=== PATIENT | female | born 1955 | race Caucasian/White ===

== ENCOUNTER 2016-03-17 01:47 | Observation (INO) ==
[2016-03-17] MEDS ORDERED: Nitroglycerin 0.4 MG TAB.SUBL SL ONE (01:56)
[2016-03-17] MEDS ORDERED: Aspirin 81 MG TAB.CHEW PO ONE (01:56)
--- NOTE | 2016-03-17 02:01 | Emergency Department Note ---
Disposition Clinical Impression: Chest pain Qualifiers: Chest pain type: unspecified Qualified Code(s): R07.9 - Chest pain, unspecified Disposition: Admitted As Inpatient Condition: Fair Chest Pain HPI - General Chief Complaint: ED Chest Pain Stated Complaint: chest pain Time Seen by Provider: 03/17/16 01:55 Vital Signs Reviewed: Yes Nursing Notes Reviewed: Yes - History of Present Illness HPI Narrative: Mrs. Mcclure, a 61yo female, presents from home by EMS with CC: chest pain. Onset in the 10:00 PM hour. Located substernal. Described as an initial indigestion-like burn however this progressed to a sharp stabbing with radiation to her bilateral jaw and left arm tingling/weakness. She currently has associated dyspnea, nausea.Patient was given chewable aspirin and a single sublingual nitroglycerin by squad in route; the nitroglycerin did improve her symptoms but did not eliminate them. Denies diaphoresis, palpitations, abdominal pain, back pain. Per patient's daughters at bedside: patient has not seen a physician in quite some time; her medical conditions are currently unmanaged/uncontrolled. PMH: Hypertension, insulin dependent DM. Family history: Maternal and paternal [place] at age greater than 55, brother with congenital heart defect requiring surgical correction. PSH: Total hysterectomy, appendectomy, cholecystectomy. Habits: Current everyday smoker. - Related Data Previous Rx's Medication Instructions Recorded Insulin Glargine [Lantus] 5 unit SQ HS 30 Days 09/18/15 Insulin Lispro Protamin/Lispro 100 unit SQ TID 30 Days 09/18/15 [Humalog Mix 75-25 Kwikpen] Metformin [Glucophage] 500 mg PO BIDWM 30 Days 09/18/15 Allergies Allergy/AdvReac Type Severity Reaction Status Date / Time No Known Allergies Allergy Verified 03/10/15 17:11 All systems ED: reviewed and negative except as stated. Constitutional: Denies: fever, chills, weakness Eyes: Denies: vision change Cardiovascular: Reports: chest pain, dyspnea on exertion, orthopnea. Denies: palpitations Respiratory: Reports: dyspnea. Denies: cough, wheezes Gastrointestinal: Reports: nausea. Denies: abdominal pain, vomiting, diarrhea, constipation, hematemesis, melena, hematochezia Musculoskeletal: Denies: back pain Neurological: Reports: weakness, numbness. Denies: headache Chest Pain PMH - Past Medical History Medical history: Reports: diabetes, other - Social History Smoking Status: Current every day smoker Alcohol use: Reports: none Physical Exam General: Patient is alert, oriented, and clutching her chest in pain. HEENT: No facial asymmetry. Head is normocephalic and atraumatic. Trachea midline. Cardiovascular: Heart regular rate and rhythm without clicks, rubs, gallops, or murmurs. No JVD. PMI nondisplaced. Respiratory: Symmetric chest rise with poor respiratory effort. Prolonged expiratory phase Bilateral breath sounds are clear without wheezing, crackles, or rhonchi. Abdomen: Bowel sounds present normoactive x-4 quadrants. Abdomen is soft, nondistended, and nontender. No organomegaly noted. Psych: Patient's affect is appropriate for situation. Course Course Narrative: Patient story and uncontrolled past medical problems are concerning. Repeat EKG and chest pain workup. EKG unremarkable. Will give aspirin and sublingual nitroglycerin every 5 minutes 3. Chest pain relieved after 2 nitroglycerin here in the emergency department. Chest x-ray unremarkable. Patient is hyperglycemic otherwise lab work unremarkable including negative troponin. Vital Signs Temperature 0 F L 03/17/16 01:49 Pulse Rate 76 03/17/16 01:49 Respiratory Rate 16 03/17/16 01:49 Blood Pressure 132/70 03/17/16 01:49 O2 Sat by Pulse Oximetry 97 03/17/16 01:49 Temperature 0 F L 03/17/16 01:49 Pulse Rate 69 03/17/16 03:26 Respiratory Rate 20 03/17/16 03:26 Blood Pressure 108/56 03/17/16 03:26 O2 Sat by Pulse Oximetry 96 03/17/16 03:26 Oxygen Delivery Oxygen Delivery Nasal Cannula Chest Pain - Medical Records Medical records reviewed: Yes I reviewed the patient's medical records. - Lab Data Result diagrams: 03/17/16 02:07 03/17/16 02:07 Lab Results 03/17/16 03/17/16 03/17/16 Range/Units 02:07 02:07 02:07 WBC 6.8 (4.3-11.1) K/mcL RBC 4.88 (3.82-4.97) M/mcL Hgb 14.5 (11.5-15.4) g/dL Hct 41.5 (35.3-44.9) % MCV 85.0 (83.0-100.0) fL MCH 29.7 (28.0-33.3) pg MCHC 34.9 (31.6-35.5) g/dL RDW 13.0 (11.5-14.5) % Plt Count 211 (140-400) K/mcL MPV 10.2 (9.4-12.4) fL Immature Gran % 0.1 (0-4) % Seg Neutrophils % 51.4 % Lymphocytes % 37.7 % Monocytes % 7.0 % Eosinophils % 3.1 % Basophils % 0.7 % Neutrophils # 3.5 (1.6-8.9) K/mcL Lymphocytes # 2.6 (0.6-4.6) K/mcL Monocytes # 0.5 (0.0-1.3) K/mcL Eosinophils # 0.2 (0.0-0.6) K/mcL Basophils # 0.1 (0.0-0.2) K/mcL PT 12.6 H (9.4-12.1) Seconds INR 1.2 APTT 25.4 L (26.0-36.0) Seconds Sodium 134 L (136-145) mEq/L Potassium 3.7 (3.5-4.5) mEq/L Chloride 102 (98-109) mEq/L Carbon Dioxide 21 (19-29) mEq/L BUN 12 (7-20) mg/dL Creatinine 0.75 (0.57-1.11) mg/dL Est GFR ( Amer) > 60 (> 60) Est GFR (Non-Af Amer) > 60 (> 60) BUN/Creatinine Ratio 16 (6-26) Glucose 314 H (70-99) mg/dL Calculated Osmolality 290 (280-300) Calcium 8.8 (8.6-10.8) mg/dL Troponin I (0-0.03) ng/mL 03/17/16 Range/Units 02:07 WBC (4.3-11.1) K/mcL RBC (3.82-4.97) M/mcL Hgb (11.5-15.4) g/dL Hct (35.3-44.9) % MCV (83.0-100.0) fL MCH (28.0-33.3) pg MCHC (31.6-35.5) g/dL RDW (11.5-14.5) % Plt Count (140-400) K/mcL MPV (9.4-12.4) fL Immature Gran % (0-4) % Seg Neutrophils % % Lymphocytes % % Monocytes % % Eosinophils % % Basophils % % Neutrophils # (1.6-8.9) K/mcL Lymphocytes # (0.6-4.6) K/mcL Monocytes # (0.0-1.3) K/mcL Eosinophils # (0.0-0.6) K/mcL Basophils # (0.0-0.2) K/mcL PT (9.4-12.1) Seconds INR APTT (26.0-36.0) Seconds Sodium (136-145) mEq/L Potassium (3.5-4.5) mEq/L Chloride (98-109) mEq/L Carbon Dioxide (19-29) mEq/L BUN (7-20) mg/dL Creatinine (0.57-1.11) mg/dL Est GFR ( Amer) (> 60) Est GFR (Non-Af Amer) (> 60) BUN/Creatinine Ratio (6-26) Glucose (70-99) mg/dL Calculated Osmolality (280-300) Calcium (8.6-10.8) mg/dL Troponin I 0.01 (0-0.03) ng/mL - EKG Data EKG attestation: Yes I reviewed and interpreted this EKG. EKG results narrative: EKG dated 03/17/16 at 1:55 shows sinus rhythm with a rate of 77. Normal intervals. Normal axis. Nonspecific ST-T changes. Compared to previous dated 03/30/2010 at 11:46 showing no acute ischemic changes in comparison. Heart Score - Score History: Moderately Suspicious EKG: Normal Age: 45-65 Risk Factors: Equal/Greater than 3 risk factor or history of atherosclerotic disease Troponin: Less than normal limit HEART Score Total: 4 Attestation Statement - Attestation Attestation: INigel MD, personally performed a history and physical exam of the patient and discussed their management with the resident. I reviewed the resident's note and agree with the documented findings, medical decision making , and plan of care. 61-year-old female presents to the emergency department with a complaint of substernal chest pain which started about 10 PM tonight. Some nausea and shortness of breath associated with the pain. No diaphoresis. Some radiation up into the neck and jaw and towards the left shoulder. She denies any history of heart problems. She does have a history of COPD. On examination patient is a well-developed well-nourished female in no acute distress. She is alert and oriented 3. There is no cyanosis or diaphoresis. Breath sounds are equal bilaterally with some scattered expiratory wheezes. Heart regular rate and rhythm. Abdomen soft and nontender with normal bowel sounds. No pedal edema. EKG normal. Chest x-ray negative. Labs reviewed. Pain was the first nitroglycerin. The hospitalist, Dr. Bee, was consulted and accepted admission of the patient.
[2016-03-17 02:19] LABS: Basophils # 0.1 K/mcL (0.0-0.2); Basophils % 0.7 %; Eosinophils # 0.2 K/mcL (0.0-0.6); Eosinophils % 3.1 %; Hematocrit 41.5 % (35.3-44.9); Hemoglobin 14.5 g/dL (11.5-15.4); Immature Granulocytes % 0.1 % (0-4); Lymphocytes # 2.6 K/mcL (0.6-4.6); Lymphocytes % 37.7 %; Mean Corpuscular HGB Conc 34.9 g/dL (31.6-35.5); Mean Corpuscular Hemoglobin 29.7 pg (28.0-33.3); Mean Platelet Volume 10.2 fL (9.4-12.4); Monocytes # 0.5 K/mcL (0.0-1.3); Neutrophils # 3.5 K/mcL (1.6-8.9); Platelet Count 211 K/mcL (140-400); Red Blood Count 4.88 M/mcL (3.82-4.97); Segmented Neutrophils % 51.4 %
[2016-03-17 02:20] LABS: INR 1.2; Prothrombin Time 12.6 Seconds (9.4-12.1)
[2016-03-17 02:23] LABS: Activated Partial Thrombo Time 25.4 Seconds (26.0-36.0)
[2016-03-17 02:24] LABS: BUN/Creatinine Ratio 16 (6-26); Blood Urea Nitrogen 12 mg/dL (7-20); Calcium 8.8 mg/dL (8.6-10.8); Carbon Dioxide 21 mEq/L (19-29); Chloride 102 mEq/L (98-109); Glucose 314 mg/dL (70-99); Osmolality,Calculated 290 (280-300); Potassium 3.7 mEq/L (3.5-4.5); Sodium 134 mEq/L (136-145); eGFR For African Americans > 60 (> 60); eGFR For Non-African Americans > 60 (> 60)
[2016-03-17] MEDS ORDERED: Naloxone 0.4 MG/ML INJ IVP PRN (05:02)
[2016-03-17] MEDS ORDERED: *HR* Morphine 2 MG/ML SYRINGE IVP PRN (05:02)
[2016-03-17] MEDS ORDERED: Dextrose Gel 15 GM PO PRN ×2 (05:02)
[2016-03-17] MEDS ORDERED: *HR* Dextrose 50 % in Water (Syg) 50 ML SYRINGE IVP PRN (05:02)
[2016-03-17] MEDS ORDERED: Ondansetron 4 MG/2 ML VIAL IVP PRN (05:02)
[2016-03-17] MEDS ORDERED: Albuterol 2.5 MG/3 ML NEBULIZER IH PRN (05:02)
[2016-03-17] MEDS ORDERED: Acetaminophen 325 MG TABLET PO PRN (05:02)
[2016-03-17] MEDS ORDERED: D5% in Water 1,000 ML IV PRN (05:02)
[2016-03-17] MEDS ORDERED: 0.9 % Sodium Chloride w KCl 20 MEQ/1,000 ML MLS IVC SCH (05:15)
--- NOTE | 2016-03-17 05:15 | Internal Med History&Physical ---
Date of Encounter: 03/17/16 Time of Encounter: 05:10 Assessment and Plan (1) Chest pain Current visit: Yes Status: Acute 1. Suspect this is due to AECOPD 2. Treat with low dose steroids, frequent aerosols, and IV Levaquin. 3. Cycle troponins and EKG's. 4. Obtain EHCO. Qualifiers: Chest pain type: precordial pain Qualified Code(s): R07.2 - Precordial pain (2) COPD (chronic obstructive pulmonary disease) Current visit: Yes Status: Acute 1. Steroids, antibiotics, and aerosols as above. 2. Smoking cessation well-advised. 3. Oxygen as needed. Qualifiers: COPD type: COPD with acute exacerbation Qualified Code(s): J44.1 - Chronic obstructive pulmonary disease with (acute) exacerbation (3) Diabetes mellitus, insulin dependent (IDDM), uncontrolled Current visit: Yes Status: Chronic 1. Pt stopped all meds in the last years. She has lost to follow up. 2. WIll cover with SSI. 3. Consult telehealth nurse educator. 4. Pt likely need hospice social worker consult to assist in coordinating care upon discharge Qualifiers: Diabetes mellitus complication status: without complication Qualified Code( s): E10.9 - Type 1 diabetes mellitus without complications (4) DVT prophylaxis Current visit: Yes Status: Acute 1. Heparin SQ. Internal Medicine - H&P: HPI Chief complaint: CHEST PAIN; SOB Admitted From: Emergency Dept Plans for Post Hospital Care: Home History of present illness: Ms. Mcclure is a 61 year old female who presented to the ER with a 2 day history of chest pain, pressure, shortness of breath, and diaphoresis. Because the pain persisted and worsened, she came to the ER for evaluation. She was evaluated for possible coronary ischemia and TX but results were negative. Nonetheless, she was admitted to the hospitalist service. Upon my assessment of the patient, she is pleasant and cooperative, but she is quite somnolent and wheezing and coughing. She admits to having had significant cough, wheeze, and thick mucus production. She describes chest pain that is more of a heaviness and smothering of her lungs. States she had a stress test several years ago which was negative and has never had any heart disease. She does not take any inhalers and aerosols. She also has not been to a doctor in over a year. She states she takes no medications and that she has not seen her primary care provider for quite some time. Despite her COPD, she continues to smoke. Past Med Surg Social Fam HX - Past Medical History Attestation: Yes The following information was validated with the patient. Source: patient, old records reviewed Medical history: COPD, diabetes Psychiatric history: no psych history - Past Surgical History Surgical History: appendectomy, cholecystectomy, JUAN CARLOS/BSO - Social History Smoking Status: Current every day smoker Smokeless Tobacco Status: No Alcohol use: none Drug use: none Current living situation: Home - Independent, With Family Recent Out of Country Travel Within the Last 8 Weeks: No Exposure or Possible Exposure to Illness During Travel: No - Family History Mother Living Status: Still Living Hx Family Cardiac Disorders: Yes (HYPERTENSION) Father Living Status: Hx Family Cardiac Disorders: Yes Hx Family Neurologic Disorders: Yes Internal Medicine - H&P: Meds Insulin Glargine [Lantus] 5 unit SQ HS 30 Days 09/18/15 [Rx] Insulin Lispro Protamin/Lispro [Humalog Mix 75-25 Kwikpen] 100 unit SQ TID 30 Days 09/18/15 [Rx] Metformin [Glucophage] 500 mg PO BIDWM 30 Days 09/18/15 [Rx] Allergies No Known Allergies Allergy (Verified 03/10/15 17:11) - Constitutional Constitutional: no anorexia, no chills, no fever(s) - EENT Eyes: no blurry vision, no change in vision, no other visual disturbances Ears: no ear pain, no tinnitus Nose, mouth and throat: no nasal congestion, no nasal discharge, no sinus pressure, no sore throat - Cardiovascular Cardiovascular ROS IM: chest pain, diaphoresis, dyspnea, dyspnea on exertion, no paroxysmal nocturnal dyspnea - Respiratory Respiratory: cough, dyspnea, dyspnea on exertion, wheezing, chest congestion, excessive phlegm production, change in phlegm color, no hemoptysis - Gastrointestinal Gastrointestinal: no abdominal pain, no diarrhea, no hematochezia, no loose stools, no nausea, no vomiting - Genitourinary Genitourinary: no dysuria, no hematuria - Musculoskeletal Musculoskeletal ROS IM: arthralgias, back pain, no muscle weakness - Integumentary Integumentary IM: no rash, no jaundice - Neurological Neurological ROS: no disequilibrium, no dizziness, no focal weakness, no frequent falls - Psychiatric Psychiatric: no anxiety, no depression - Endocrine Endocrine IM: no cold intolerance, no heat intolerance - Hematologic/Lymphatic Hematologic/Lymphatic: no easy bruising, no lymphadenopathy - Allergic/Immunologic Allergic/Immunologic: wheezing, no GI upset with certain foods - Constitutional Vitals: Temp Pulse Resp BP Pulse Ox 97.5 F L 63 17 107/66 96 03/17/16 04:36 03/17/16 04:36 03/17/16 04:36 03/17/16 04:36 03/17/16 04:36 General appearance: Present: cooperative, A&O X 3, no acute distress - Head Head exam: Present: atraumatic, normal inspection - Expanded Head Exam Head exam expanded: Absent: abrasion, contusion, general tenderness - Eye Eye exam: Present: EOMI, normal appearance, PERRL. Absent: scleral icterus Pupils: Present: normal accommodation - ENT ENT exam: Present: mucous membranes dry, normal exam, normal oropharynx - Neck Neck exam general surgery: Present: full ROM, supple. Absent: lymphadenopathy, nuchal rigidity, thyromegaly - Expanded Neck Exam Neck exam: Present: carotid bruit - Respiratory Respiratory exam: Present: chest wall tenderness, prolonged expiratory phase, rales, wheezes. Absent: CTAB, rhonchi - Cardiovascular Cardiovascular exam: Present: RRR, +S1, +S2. Absent: distant heart sounds, systolic murmur - GI/Abdominal GI/Abdominal exam: Present: normal bowel sounds, soft. Absent: hepatomegaly, mass, pulsatile mass, splenomegaly - Extremities Exam Extremities exam: Present: full ROM, normal capillary refill. Absent: calf tenderness, joint swelling, tenderness - Back Exam Back exam: Present: normal inspection. Absent: CVA tenderness (L), CVA tenderness (R) - Neurological Exam Neurological exam: Present: alert, CN II-XII intact, oriented X3, no focal deficits - Psychiatric Psychiatric exam: Present: normal affect, normal mood - Skin Skin exam: Present: dry, warm Internal Med - H&P Results - Labs CBC & Chem 7: 03/17/16 02:07 03/17/16 02:07 - EKG Data -: EKG Interpreted by Myself EKG shows normal: sinus rhythm - EKG Data Prior EKG available for review: no EKG comments: 03/17/16 05:23 nsr; no evidence of ischemia
[2016-03-17 05:39] LABS: Hemoglobin A1C 9.6 %
[2016-03-17] MEDS ORDERED: Levofloxacin 500 MG/100 ML 500 MG/100 ML BAG IVPB SCH (06:00)
[2016-03-17] MEDS ORDERED: *HR* Heparin 5,000 UNIT/ML VIAL SQ SCH (07:00)
[2016-03-17] MEDS: Insulin LISPRO 300 UNITS/3 ML VIAL SQ SCH ×2 (07:58→12:14)
[2016-03-17] MEDS ORDERED: predniSONE 20 MG TABLET PO SCH (09:00)
[2016-03-17] MEDS: Ipratropium/Albuterol Neb 3 ML IH SCH ×2 (10:29→15:37)
[2016-03-17 15:51] VITALS: BP 110/65
--- NOTE | 2016-03-17 16:38 | Discharge Summary ---
Date of Encounter: 03/17/16 Time of Encounter: 10:35 - Discharge Diagnosis (1) COPD with acute exacerbation Priority: Primary Status: Acute (2) Chest pain Priority: Primary Status: Acute Qualifiers: Chest pain type: precordial pain Qualified Code(s): R07.2 - Precordial pain (3) Diabetes mellitus, insulin dependent (IDDM), uncontrolled Priority: Primary Status: Chronic Qualifiers: Diabetes mellitus complication status: without complication Qualified Code( s): E10.9 - Type 1 diabetes mellitus without complications - Discharge Medications Prescriptions: GuaiFENesin/Codeine [Robitussin w/Codeine] 10 ml PO Q6HR 5 Days Budesonide/Formoterol 160/4.5 [Symbicort 160/4.5] 2 puff IH BIDR 30 Days Levofloxacin [Levaquin] 500 mg PO DAILY 7 Days PredniSONE 20 mg PO DAILY 7 Days Tiotropium [Spiriva] 18 mcg IH DAILY 30 Days Home Medications: Insulin Lispro Protamin/Lispro [Humalog Mix 75-25 Kwikpen] 100 unit SQ TID 30 Days 09/18/15 [Rx] Metformin [Glucophage] 500 mg PO BIDWM 30 Days 09/18/15 [Rx] Budesonide/Formoterol 160/4.5 [Symbicort 160/4.5] 2 puff IH BIDR 30 Days [Rx] GuaiFENesin/Codeine [Robitussin w/Codeine] 10 ml PO Q6HR 5 Days 03/17/16 [Rx] Insulin Glargine [Lantus] 15 unit SQ HS 30 Days 03/17/16 [Rx] Levofloxacin [Levaquin] 500 mg PO DAILY 7 Days 03/17/16 [Rx] PredniSONE 20 mg PO DAILY 7 Days 03/17/16 [Rx] Tiotropium [Spiriva] 18 mcg IH DAILY 30 Days 03/17/16 [Rx] Allergies/Adverse Reactions: Allergies No Known Allergies Allergy (Verified 03/10/15 17:11) Procedures/tests Complete & Pending: Procedures Performed prior 72 hours Category Date Time Status ECG 12 lead ECG [ECG] AM 0600 Y 03/17/16 06:00 Ordered Date of admission: 03/17/16 03:48 Primary care physician: PCP NO Discharging clinician: Mario Alberto P Capri Anticipated date of discharge: 03/17/16 - Patient Status Disposition: Home, Self-Care Condition: Good Overall status at discharge: patient is progressing back to baseline - Discharge Instructions Instructions: Chest Pain (DC) Follow Up With: NO,PCP [Primary Care Provider] - - Diet and Activity Activity: resume usual activities as tolerated Diet: diabetic diet Interval History: Chest pain has resolved, serial troponin remain normal. No acute telemetry events. Hospital course: Ms. Mcclure is a 61 year old female with COPD, and on-going tobacco abuse. She was admitted with a 2 day history of chest pain, pressure, shortness of breath, and diaphoresis, for rule of ACS, though impression at admission was more consistent with chest pain related to COPD exacerbation. Serial troponin remained normal. No acute events on telemetry. Chest had improved with initiation of prednisone and nebulized bronchodilators. Glyceric control was poor at admission and even worse with initiation of prednisone At discharge O/E: Not in distress HEENT: Not pale, anicteric, afebrile, acyanotic, Chest: no audible wheezing, prolonged expiratory phase, no crackles. Heart: RRR, HS1/2, no murmur Abdomen: soft, non-tender, no masses. : No flank tenderness, no CVA tenderness, no suprapubic tenderness. STATION CHIEF: AAO x 3, no gross focal neurological deficits Skin: No active skin lesion Extremities: No pedal edema, normal pedal pulses, no calf tenderness. IMP Atypical chest pain related to COPD exacerbation. myocardial infarction ruled out COPD exacerbation Poorly controlled diabetes. PLAN DC home Medication compliance Follow-up with PCP this week Smoking cessation. Increase Levemir to 15u QHS. Time spent discussing smoking cessation with patient: more than 10 minutes - Time Spent with Patient Total time spent providing and/or coordinating discharge services: Greater than 30 minutes - Constitutional Vitals: Temp Pulse Resp BP Pulse Ox 97.5 F L 97 17 110/65 91 L 03/17/16 15:49 03/17/16 15:49 03/17/16 15:49 03/17/16 15:49 03/17/16 15:49 General appearance: Present: cooperative, A&O X 3, no acute distress
--- NOTE | 2016-03-17 20:08 | Electrocardiograph Report ---
[facility] Test Date: 2016-03-17 Pat Name: Tram Mcclure Department: 103 Room: 3B47 Gender: F Button Sawyer: PELON : 1955 Requested By: Sushil Keene Order Number: [id number] Reading MD: Avery Almendarez DO Measurements Intervals [place] Rate: 77 P: 24 FL: 134 QRS: 56 QRSD: 86 T: 70 QT: 358 QTc: 390 Interpretive Statements SINUS RHYTHM Electronically Signed On 03-17-16 20:06:47 EST by Avery Almendarez DO
[2016-03-18] MEDS ORDERED: levoFLOXacin 500 MG TABLET PO SCH (09:00)
== END 2016-03-17 17:25 | disposition home or self-care (01) ==
LOC: EMEROO 01:47 → 3BNU 01:47
PROVIDERS: ADMIT Internal Medicine; ATTEND Internal Medicine Endocrinology, Diabetes & Metabolism

== ENCOUNTER 2016-07-18 18:42 | Observation (INO) ==
[2016-07-18] MEDS ORDERED: Aspirin 81 MG TAB.CHEW PO ONE (19:13)
--- NOTE | 2016-07-18 19:13 | Emergency Department Note ---
Disposition Clinical Impression: Chest pain of uncertain etiology Disposition: Admitted As Inpatient Condition: Good Time of Disposition: 22:46 Chest Pain HPI - General Chief Complaint: ED Chest Pain Stated Complaint: chest pain Time Seen by Provider: 07/18/16 18:53 Source: patient, EMS Limitations: no limitations Vital Signs Reviewed: Yes Nursing Notes Reviewed: Yes - History of Present Illness HPI Narrative: Mrs. Mcclure, a 61-year-old female, presents from home by POV with chief complaint of chest/epigastric pain. Onset 4:56 PM. Described as a dull stump located in the mid sternum/low sternum/epigastrium. Radiation bilaterally posteriorly toward the thoracolumbar junction and laterally along the inferior costal margins. Associated with nausea, right jaw pain, dyspnea, sensation of warmth. No diaphoresis, weakness. Patient does have a history of GERD however she notes that her symptoms felt different than her typical reflux. Patient has never been diagnosed with COPD however she is awaiting scheduling for her first stress test and cardiac echo on an outpatient basis. PMH: Hypertension, hyperlipidemia, diabetes on insulin and oral hyperglycemic, GERD, COPD a 61-year-old female PSH: cholecystectomy, appendectomy, hysterectomy with right oophorectomy Habits: Patient is a current every day smoker. Family history: Father had OR in his late 50s. Brother 2 days ago at the age of 57 due to suspected OR. ROS: Positive: Chest/epigastric pain, nausea, right jaw pain, dyspnea, back pain Negative: Fever, chills, vomiting, flank pain, Severity scale (1-10): 4 - Related Data Home Medications Medication Instructions Recorded Confirmed Metformin HCl [Glucophage] 1,000 mg PO BID 03/28/16 07/18/16 Aspirin 81 mg PO DAILY 05/02/16 07/18/16 Metoprolol [Lopressor] 25 mg PO BID 05/02/16 07/18/16 Rosuvastatin Calcium [Crestor] 40 mg PO DAILY 05/02/16 07/18/16 Insulin ASPART [Novolog Flexpen] 6 - 14 unit SQ TID PRN 05/27/16 07/18/16 Insulin Glargine [Lantus] 23 unit SQ HS 05/27/16 07/18/16 Isosorbide MONOnitrate (24 HR) 60 mg PO DAILY 05/27/16 07/18/16 [Imdur] Albuterol Sulfate [Ventolin Hfa] 2 puff IH Q6H PRN 07/18/16 07/18/16 Lisinopril 2.5 mg PO DAILY 07/18/16 07/18/16 Ondansetron ODT [Zofran ODT] 4 mg PO Q8H PRN 07/18/16 07/18/16 Previous Rx's Medication Instructions Recorded Tiotropium [Spiriva] 18 mcg IH DAILY 30 Days 03/17/16 Omeprazole [PriLOSEC] 40 mg PO DAILY #30 cap 05/02/16 Allergies Allergy/AdvReac Type Severity Reaction Status Date / Time No Known Allergies Allergy Verified 07/18/16 20:09 All systems ED: reviewed and negative except as stated. Chest Pain PMH - Past Medical History Medical history: Reports: COPD, diabetes, GERD, hyperlipidemia, hypertension, liver disease Surgical history: Reports: appendectomy, breast surgery, cholecystectomy, JUAN CARLOS/ BSO Psychiatric history: Reports: no psych history - Social History Smoking Status: Current every day smoker Alcohol use: Reports: none Drug use: Reports: none Physical Exam Vital Signs Reviewed General: Patient is alert, oriented, and in no acute distress. HEENT: No facial asymmetry. Head is normocephalic and atraumatic. PERRLA. Oral mucosa moist. Trachea midline. Cardiovascular: Heart regular rate and rhythm without clicks, rubs, gallops, or murmurs. No JVD. PMI nondisplaced. Bilateral radial posterior tibial pulses 2 /4. No pedal edema. Palpation: Patient's inferior and middle sternum reproduce her chest pain exactly. Respiratory: Symmetric chest rise with poor respiratory effort. Prolonged respiratory effort. Bilateral breath sounds are clear without wheezing however bibasilar coarse lung sounds are present. Abdomen: Obese. Bowel sounds present normoactive x-4 quadrants. Abdomen is soft, nondistended. Epigastric tenderness without tenderness along the inferior costal margins. Skeletal skeletal: No tenderness along thoracic or lumbar spinous processes. Psych: Patient's affect is appropriate for situation. - General Limitations: no limitations General appearance: alert, in no apparent distress Course Course Narrative: Pharmacologic stress test 04/29/16 negative for ischemia. Ejection fraction greater than 70%. Normal wall motion. Chest x-ray unremarkable per radiology read. EKG unremarkable. Troponin negative. Spoke with the patient regarding her risk factors and current findings. She agrees to come in for rule out of ACS. Spoke with the hospitalist, Dr. Pollock, who agrees to accept the patient. Vital Signs Temperature 98.1 F 07/18/16 18:48 Pulse Rate 80 07/18/16 18:48 Respiratory Rate 16 07/18/16 18:48 Blood Pressure 107/61 07/18/16 18:48 O2 Sat by Pulse Oximetry 93 07/18/16 18:48 Temperature 98.1 F 07/18/16 18:48 Pulse Rate 79 07/18/16 20:30 Respiratory Rate 20 07/18/16 21:11 Blood Pressure 116/66 07/18/16 21:11 O2 Sat by Pulse Oximetry 94 07/18/16 20:30 Oxygen Delivery Oxygen Delivery Room Air Chest Pain - Medical Records Medical records reviewed: Yes I reviewed the patient's medical records. - Lab Data Result diagrams: 07/18/16 19:30 07/18/16 19:30 Lab Results 07/18/16 07/18/16 07/18/16 Range/Units 19:30 19:30 19:30 WBC 11.0 (4.3-11.1) K/mcL RBC 4.84 (3.82-4.97) M/mcL Hgb 13.9 (11.5-15.4) g/dL Hct 40.8 (35.3-44.9) % MCV 84.3 (83.0-100.0) fL MCH 28.7 (28.0-33.3) pg MCHC 34.1 (31.6-35.5) g/dL RDW 13.8 (11.5-14.5) % Plt Count 228 (140-400) K/mcL MPV 9.8 (9.4-12.4) fL Immature Gran % 0.4 (0-4) % Seg Neutrophils % 59.5 % Lymphocytes % 29.8 % Monocytes % 7.0 % Eosinophils % 2.6 % Basophils % 0.7 % Neutrophils # 6.5 (1.6-8.9) K/mcL Lymphocytes # 3.3 (0.6-4.6) K/mcL Monocytes # 0.8 (0.0-1.3) K/mcL Eosinophils # 0.3 (0.0-0.6) K/mcL Basophils # 0.1 (0.0-0.2) K/mcL Sodium 139 (136-145) mEq/L Potassium 3.9 (3.5-4.5) mEq/L Chloride 104 (98-109) mEq/L Carbon Dioxide 24 (19-29) mEq/L BUN 12 (7-20) mg/dL Creatinine 0.69 (0.57-1.11) mg/dL Est GFR ( Amer) > 60 (> 60) Est GFR (Non-Af Amer) > 60 (> 60) BUN/Creatinine Ratio 17 (6-26) Glucose 100 H (70-99) mg/dL Calculated Osmolality 288 (280-300) Calcium 9.2 (8.6-10.8) mg/dL Troponin I (0-0.03) ng/mL Lipase 20 (8-78) Units/L 05//17 Range/Units 19:30 WBC (4.3-11.1) K/mcL RBC (3.82-4.97) M/mcL Hgb (11.5-15.4) g/dL Hct (35.3-44.9) % MCV (83.0-100.0) fL MCH (28.0-33.3) pg MCHC (31.6-35.5) g/dL RDW (11.5-14.5) % Plt Count (140-400) K/mcL MPV (9.4-12.4) fL Immature Gran % (0-4) % Seg Neutrophils % % Lymphocytes % % Monocytes % % Eosinophils % % Basophils % % Neutrophils # (1.6-8.9) K/mcL Lymphocytes # (0.6-4.6) K/mcL Monocytes # (0.0-1.3) K/mcL Eosinophils # (0.0-0.6) K/mcL Basophils # (0.0-0.2) K/mcL Sodium (136-145) mEq/L Potassium (3.5-4.5) mEq/L Chloride (98-109) mEq/L Carbon Dioxide (19-29) mEq/L BUN (7-20) mg/dL Creatinine (0.57-1.11) mg/dL Est GFR ( Amer) (> 60) Est GFR (Non-Af Amer) (> 60) BUN/Creatinine Ratio (6-26) Glucose (70-99) mg/dL Calculated Osmolality (280-300) Calcium (8.6-10.8) mg/dL Troponin I 0.00 (0-0.03) ng/mL Lipase (8-78) Units/L - EKG Data EKG attestation: Yes I reviewed and interpreted this EKG. EKG results narrative: EKG dated 07/18/16 at 18:44 and troponin I as sinus rhythm with rate of 83. Normal intervals; GA 145, QRS 89, QT/QTC 365/05. Normal axis. T-wave inversions in aVL present on comparative EKG. Otherwise nonspecific ST-T changes. Compared to previous dated 03/17/2016 showing no acute ischemic changes in comparison. Heart Score - Score History: Slightly Suspicious EKG: Non Specific repolarisation Disturbance Age: 45-65 Risk Factors: Equal/Greater than 3 risk factor or history of atherosclerotic disease Troponin: Less than normal limit HEART Score Total: 4 Attestation Statement - Attestation Attestation: I, Nigel Bellamy MD, personally evaluated this patient and discussed their management with the resident physician. I reviewed the resident's note and agree with the documented findings, medical decision making, and plan of care. 61-year-old female presented to the emergency department with a complaint of some lower substernal chest pain which started about 2 hours prior to arrival while at rest. She states that the pain felt like heartburn and she took some Pepto-Bismol with no relief. She then took 3 baby aspirin. The pain radiated to the lower chest bilaterally and also straight through to the back. Nausea but no vomiting with the pain. Some increased shortness of breath. No diaphoresis. No palpitations. Patient denies any known prior history of heart disease however she does have a history of hypertension and diabetes. She is a smoker. She rated the pain a 10 out of 10 at worst. At present she rates the pain a 1-2. On examination patient is a well-developed well-nourished female in no acute distress. She is alert and oriented 3. There is no cyanosis or diaphoresis. Breath sounds are equal bilaterally with some coarse wheezes, worse on the left. Heart regular rate and rhythm. Abdomen is soft and nontender with normal bowel sounds. No pedal edema. No acute changes on EKG. Labs reviewed. Troponin 0.00. Chest x-ray negative. Due to patient's age and risk factors we will consult the hospitalist for admission. Dr. Pollock was consulted and accepted admission of the patient.
[2016-07-18 19:45] LABS: Basophils # 0.1 K/mcL (0.0-0.2); Basophils % 0.7 %; Eosinophils # 0.3 K/mcL (0.0-0.6); Eosinophils % 2.6 %; Hematocrit 40.8 % (35.3-44.9); Hemoglobin 13.9 g/dL (11.5-15.4); Immature Granulocytes % 0.4 % (0-4); Lymphocytes # 3.3 K/mcL (0.6-4.6); Lymphocytes % 29.8 %; Mean Corpuscular HGB Conc 34.1 g/dL (31.6-35.5); Mean Corpuscular Hemoglobin 28.7 pg (28.0-33.3); Mean Corpuscular Volume 84.3 fL (83.0-100.0); Mean Platelet Volume 9.8 fL (9.4-12.4); Monocytes # 0.8 K/mcL (0.0-1.3); Neutrophils # 6.5 K/mcL (1.6-8.9); Platelet Count 228 K/mcL (140-400); Red Blood Count 4.84 M/mcL (3.82-4.97); Red Cell Distribution Width 13.8 % (11.5-14.5); Segmented Neutrophils % 59.5 %
[2016-07-18 20:02] LABS: BUN/Creatinine Ratio 17 (6-26); Blood Urea Nitrogen 12 mg/dL (7-20); Calcium 9.2 mg/dL (8.6-10.8); Carbon Dioxide 24 mEq/L (19-29); Chloride 104 mEq/L (98-109); Glucose 100 mg/dL (70-99); Osmolality,Calculated 288 (280-300); Potassium 3.9 mEq/L (3.5-4.5); Sodium 139 mEq/L (136-145); eGFR For African Americans > 60 (> 60); eGFR For Non-African Americans > 60 (> 60)
[2016-07-18] MEDS ORDERED: Ondansetron 4 MG/2 ML VIAL IVP PRN (22:22)
[2016-07-18] MEDS ORDERED: Naloxone 0.4 MG/ML INJ IVP PRN (22:22)
[2016-07-18] MEDS ORDERED: Acetaminophen 325 MG TABLET PO PRN (22:22)
[2016-07-18] MEDS ORDERED: D5% in Water 1,000 ML IVC PRN (22:36)
[2016-07-18] MEDS ORDERED: Dextrose Gel 15 GM PO PRN ×2 (22:36)
[2016-07-18] MEDS ORDERED: *HR* Dextrose 50 % in Water (Syg) 50 ML SYRINGE IVP PRN (22:36)
--- NOTE | 2016-07-18 22:45 | Internal Med History&Physical ---
Date of Encounter: 07/18/16 Time of Encounter: 22:00 Assessment and Plan (1) Chest pain Current visit: No Status: Acute Assess: Ms. Mcclure presents from the ED with chief complaint of chest and epigastric pain. Patient reports her pain began around 5 PM today (07/18/16). Patient describes her pain as beginning midsternum/epigastric area radiating to her right jaw and back of neck. Patient qualifies pain as burning sensation and constant and became nauseated and SOB. Patient states she has had this pain before but never to this degree of discomfort. Plan: Trend troponins x2 Continuous cardiac telemetry Continue aspirin therapy Continue lisinopril Continue isosorbide Continue Lopressor Supplemental O2 ordered Follow-up labs ordered, including INR and APTT Monitor the patient's vital signs Qualifiers: Chest pain type: precordial pain Qualified Code(s): R07.2 - Precordial pain (2) Diabetes mellitus, insulin dependent (IDDM), uncontrolled Current visit: Yes Status: Chronic Assess: Patient presents with history of chronic diabetes mellitus, insulin-dependent uncontrolled. Plan: Blood glucose monitoring ordered Continue patient's insulin Low-dose correction insulin protocol ordered Hypoglycemia protocol ordered Qualifiers: Diabetes mellitus complication status: without complication Qualified Code( s): E10.9 - Type 1 diabetes mellitus without complications (3) COPD (chronic obstructive pulmonary disease) Current visit: Yes Status: Chronic Assess: Patient presents with history of chronic obstructive pulmonary disease. Plan: Supplemental O2 ordered with titration if SPO2 less than 92% Monitor SpO2 Continue albuterol sulfate Continue Spiriva Monitor patient's vital signs Qualifiers: COPD type: COPD with acute exacerbation Qualified Code(s): J44.1 - Chronic obstructive pulmonary disease with (acute) exacerbation (4) Hypertension Current visit: Yes Status: Chronic Assess: Patient presents with history of chronic hypertension. Plan: Continue lisinopril Continue Lopressor Monitor patient's vital signs Qualifiers: Hypertension type: essential hypertension Qualified Code(s): I10 - Essential (primary) hypertension (5) DVT prophylaxis Current visit: Yes Status: Acute Assess: Patient to be placed on DVT prophylaxis due to current chest pain, cardiac risk factors, and inpatient status. Plan: Heparin 5,000 units SQ Q8 Internal Medicine - H&P: HPI Chief complaint: Chest pain Admitted From: Emergency Dept Plans for Post Hospital Care: Home History of present illness: Ms. Mcclure is a 61 year old female presents from the ED with chief complaint of chest and epigastric pain. Patient reports her pain began around 5 PM today (). Patient describes her pain as beginning midsternum/epigastric area radiating to her right jaw and back of neck. Patient qualifies pain as burning sensation and constant and became nauseated and SOB. Patient states she has had this pain before but never to this degree of discomfort. Patient denies dizziness, weakness, diaphoresis, syncope, fever, chills, vomiting, flank pain, or lightheadedness patient's cardiac risk factors include diabetes, hyperlipidemia, and hypertension. Patient also reports medical history of COPD , GERD, and liver disease. Mrs. Nick reports she is a current smoker, smoking 1/2-1 pack per day. Patient denies use of EtOH or drugs. Most recently , patient had pharmacologic stress test performed on 04/29/16 which was negative for ischemia. Stress test showed EF greater than 70% and normal wall motion. Patient's EKG dated 03/17/16 shows sinus rhythm. EKG dated 07/18/16 shows sinus rhythm as well. Both EKGs are unremarkable. Patient to be placed in observation status with continuous cardiac telemetry, continuous pulse oximetry, troponins trended 2, follow-up labs ordered including INR and APTT as well as lipid panel. Patient to be monitored closely. Past Med Surg Social Fam HX - Past Medical History Source: patient Medical history: COPD, diabetes, GERD, hyperlipidemia, hypertension, liver disease Psychiatric history: no psych history - Past Surgical History Surgical History: appendectomy, breast surgery, cholecystectomy, hysterectomy, JUAN CARLOS/BSO - Social History Smoking Status: Current every day smoker Packs per day: 1/2 to 1 PPD Smokeless Tobacco Status: No Alcohol use: none Drug use: none Occupational status: retired Current living situation: Home - Independent Activity Level: Independent ambulation Recent Out of Country Travel Within the Last 8 Weeks: No Exposure or Possible Exposure to Illness During Travel: No - Family History Mother Race: Family Member Ethnicity: Non- Living Status: Still Living Hx Family Cardiac Disorders: Yes (HTN, Strokes x2) Father Race: Family Member Ethnicity: Non- Living Status: Age at : 58 Cause of : Complications of DM Hx Family Cardiac Disorders: Yes (CO) Hx Family Endocrine Disorder: Yes (DM) Hx Family Neurologic Disorders: Yes Brother Race: Family Member Ethnicity: Non- Living Status: Age at : 58 Cause of : CO Hx Family Cardiac Disorders: Yes (CO) Sister Race: Family Member Ethnicity: Non- Living Status: Age at : 60 Cause of : Complications from DM Hx Family Endocrine Disorder: Yes (DM) Internal Medicine - H&P: Meds Tiotropium [Spiriva] 18 mcg IH DAILY 30 Days 03/17/16 [Rx] Metformin HCl [Glucophage] 1,000 mg PO BID 03/28/16 [History] Aspirin 81 mg PO DAILY 05/02/16 [History] Metoprolol [Lopressor] 25 mg PO BID 05/02/16 [History] Omeprazole [PriLOSEC] 40 mg PO DAILY #30 cap 05/02/16 [Rx] Rosuvastatin Calcium [Crestor] 40 mg PO DAILY 05/02/16 [History] Insulin ASPART [Novolog Flexpen] 6 - 14 unit SQ TID PRN 05/27/16 [History] Insulin Glargine [Lantus] 23 unit SQ HS 05/27/16 [History] Isosorbide MONOnitrate (24 HR) [Imdur] 60 mg PO DAILY 05/27/16 [History] Albuterol Sulfate [Ventolin Hfa] 2 puff IH Q6H PRN 07/18/16 [History] Lisinopril 2.5 mg PO DAILY 07/18/16 [History] Ondansetron ODT [Zofran ODT] 4 mg PO Q8H PRN 07/18/16 [History] Allergies No Known Allergies Allergy (Verified 07/18/16 20:09) All Systems PM: A 10-system review of systems was performed and is negative for pertinent findings except as documented above in the HPI. - Constitutional Constitutional: no chills, no fever(s), no night sweats - EENT Eyes: no change in vision, no discharge, no pain, no photophobia Ears: no ear discharge, no ear pain, no tinnitus Nose, mouth and throat: no dysphagia, no nasal discharge, no neck pain, no sore throat - Breasts Breasts: as per HPI - Cardiovascular Cardiovascular ROS IM: as per HPI, chest pain, dyspnea - Respiratory Respiratory: as per HPI, dyspnea - Gastrointestinal Gastrointestinal: no abdominal pain, no diarrhea, no hematemesis, no hematochezia, no melena, no nausea, no vomiting - Genitourinary Genitourinary: no change in urinary stream, no dysuria, no flank pain, no hematuria Menstruation: as per HPI - Musculoskeletal Musculoskeletal ROS IM: as per HPI, neck pain, no numbness, no tingling - Integumentary Integumentary IM: no rash, no unusual bruising - Neurological Neurological ROS: no confusion, no convulsions, no focal weakness, no numbness, no tingling, no tremor(s) - Psychiatric Psychiatric: as per HPI - Endocrine Endocrine IM: as per HPI - Hematologic/Lymphatic Hematologic/Lymphatic: no easy bruising - Allergic/Immunologic Allergic/Immunologic: as per HPI - Constitutional Vitals: Temp Pulse Resp BP Pulse Ox 98.1 F 79 20 116/66 94 07/18/16 18:48 07/18/16 20:30 07/18/16 21:11 07/18/16 21:11 07/18/16 20:30 General appearance: Present: cooperative, mild distress, A&O X 3, pleasant, answers questions appropriately - Head Head exam: Present: atraumatic, normocephalic - Eye Eye exam: Present: PERRL, conjuntiva pink, sclera anicteric Pupils: Present: PERRL - ENT ENT exam: Present: normal exam, normal external ear exam - Neck Neck exam general surgery: Present: supple, trachea midline. Absent: lymphadenopathy - Respiratory Respiratory exam: Present: CTAB. Absent: accessory muscle use, rales, rhonchi, wheezes - Cardiovascular Cardiovascular exam: Present: RRR, +S1, +S2. Absent: diastolic murmur, gallop, rubs, systolic murmur - GI/Abdominal GI/Abdominal exam: Present: normal bowel sounds, soft, no peritoneal signs. Absent: distended, tenderness - Rectal Rectal exam: Present: deferred - Additional comments: exam deferred. - Extremities Exam Extremities exam: Present: warm, radial pulses palpable and symetrical. Absent : calf tenderness, cyanotic, pedal edema - Back Exam Back exam: Present: normal inspection - Neurological Exam Neurological exam: Present: CN II-XII intact, oriented X3, no focal deficits. Absent: pronater drift, facial droop, speech deficit - Psychiatric Psychiatric exam: Present: normal affect, normal mood - Skin Skin exam: Present: dry, intact Internal Med - H&P Results - Labs CBC & Chem 7: 07/18/16 19:30 07/18/16 19:30 - EKG Data EKG shows normal: sinus rhythm Rate: normal - EKG Data Prior EKG available for review: yes When compared to previous EKG: there is no significant change Interpretation IM: normal EKG EKG comments: 07/18/16 23:05 EKG dated 03/17/16 shows sinus rhythm. EKG dated 07/18/16 shows sinus rhythm. - Diagnostic Studies Chest x-ray Additional comments: 1-View CXR of chest dated 07/18/16 shows: Cardiac leads project over the chest. Dense punctate left pulmonary nodules are similar to prior. No confluent focal pulmonary opacities to suggest acute airspace disease. No evidence of pleural effusion or pneumothorax. Cardiac and mediastinal silhouettes are within normal limits. Calcified lymph nodes at the left hilum, likely reflecting granulomatosis disease. Overall impression: No evidence of acute cardiopulmonary disease.
--- NOTE | 2016-07-19 | Event Note ---
Date of Encounter: 07/18/16 Time of Encounter: 23:59 Patient seen and examined with nurse practitioner. Agree with assessment and plan. 61-year-old female with multiple risk factors for coronary artery disease including age, smoking, diabetes, hypertension, dyslipidemia, positive family history presents with chest pain. EKG shows no ST segment shifts initial troponin normal. Serial troponin. She had a recent stress test in April 2016 showing no reversible ischemia. Cardiology consultation
[2016-07-19 04:45] LABS: Basophils # 0.1 K/mcL (0.0-0.2); Basophils % 0.6 %; Eosinophils # 0.4 K/mcL (0.0-0.6); Eosinophils % 3.4 %; Hematocrit 39.5 % (35.3-44.9); Hemoglobin 13.6 g/dL (11.5-15.4); Immature Granulocytes % 0.3 % (0-4); Lymphocytes # 3.6 K/mcL (0.6-4.6); Lymphocytes % 34.6 %; Mean Corpuscular HGB Conc 34.4 g/dL (31.6-35.5); Mean Corpuscular Hemoglobin 29.5 pg (28.0-33.3); Mean Corpuscular Volume 85.7 fL (83.0-100.0); Mean Platelet Volume 10.4 fL (9.4-12.4); Monocytes # 0.7 K/mcL (0.0-1.3); Monocytes % 6.4 %; Neutrophils # 5.7 K/mcL (1.6-8.9); Platelet Count 201 K/mcL (140-400); Red Blood Count 4.61 M/mcL (3.82-4.97); Red Cell Distribution Width 14.1 % (11.5-14.5); Segmented Neutrophils % 54.7 %
[2016-07-19] MEDS ORDERED: Nitroglycerin 0.4 MG TAB.SUBL SL ONE (04:52)
[2016-07-19] MEDS: Nitroglycerin 0.4 MG TAB.SUBL SL PRN ×2 (04:55→05:02)
[2016-07-19 05:05] LABS: Alanine Aminotransferase 19 Units/L (0-55); Albumin 3.2 g/dL (3.5-5.0); Albumin/Globulin Ratio 0.9 (1.1-2.2); Alkaline Phosphatase 125 Units/L (38-126); Aspartate Amino Transferase 25 Units/L (5-34); BUN/Creatinine Ratio 16 (6-26); Bilirubin,Total 0.7 mg/dL (0.2-1.2); Blood Urea Nitrogen 11 mg/dL (7-20); Calcium 8.8 mg/dL (8.6-10.8); Carbon Dioxide 25 mEq/L (19-29); Chloride 105 mEq/L (98-109); Chol/HDL Ratio 4.2 (0-4.9); Cholesterol 133 mg/dL (< 200); Globulin 3.7 g/dL (2.4-3.5); Glucose 84 mg/dL (70-99); HDL Cholesterol 32 mg/dL (40-59); LDL Cholesterol,Calculated 77 mg/dL (0-99); Osmolality,Calculated 285 (280-300); Sodium 138 mEq/L (136-145); Total Protein 6.9 g/dL (6.0-8.3); Triglycerides 119 mg/dL (< 150); eGFR For African Americans > 60 (> 60); eGFR For Non-African Americans > 60 (> 60)
[2016-07-19 05:18] LABS: INR 1.2; Prothrombin Time 12.9 Seconds (9.4-12.1)
[2016-07-19] MEDS: Pantoprazole 40 MG VIAL IVP SCH ×2 (05:19→05:55)
[2016-07-19 05:21] LABS: Activated Partial Thrombo Time 29.5 Seconds (26.0-36.0)
[2016-07-19] MEDS ORDERED: *HR* Heparin 5,000 UNIT/ML VIAL SQ SCH (06:00)
--- NOTE | 2016-07-19 08:00 | Cardiology Consult Note ---
Date of Encounter: 07/19/16 Time of Encounter: 08:00 Assessment and Plan (1) Chest pain Current Visit: No Status: Acute Per Cardiology: Atypical chest pain symptoms that are mainly occurring at rest. Reporting increased dyspnea on exertion and fatigue. Trops 0.00 x 2. Had negative ST 2009 , 2012, and 04/2016. Risk factors for CAD: HTN, HLD, DM2, Nicotine abuse, +FH. Patient has never undergone left heart catheterization. I reviewed discussed with patient potential for further ischemic evaluation and patient is agreeable to proceed. Discussed and reviewed with Dr. Elin Modi and Dr. Hermosillo, recommend patient for left heart catheterization. Will check echocardiogram. Further conditions after echo and catheterization. Currently on aspirin, statin , beta vick, TONNY inhibitor, and long-acting nitrate. Qualifiers: Chest pain type: unspecified Qualified Code(s): R07.9 - Chest pain, unspecified (2) Nicotine abuse Current Visit: Yes Status: Chronic Per Cardiology: Currently smoking half to one pack per day and his average one pack per day for 44 years. Smoking cessation counseling provided. Discussion w patient/family: The assessment and plan as outlined above was discussed with the patient who expressed understanding and agreement. All questions were answered. Thank you for involving us in the care of your patient. Please call with any questions. History of Present Illness Consult date: 07/19/16 Requesting physician: Cody Valerio Consult reason: CP Chief complaint: CP History of present illness: Ms. Mcclure is a 61 year old female with relevant past medical history of diabetes mellitus type 2, hyperlipidemia, hypertension, COPD-- not on home O2, GERD, nicotine abuse currently smoking half to one pack per day-- has averaged one pack per day for 44 years. +FH of CAD with reported father with AR at age 57 and concern for brother possibly dying from heart attack at age 58 this past week. Records reviewed: "She presented with complaint of chest and epigastric pain. Patient reports her pain began around 5 PM today (07/18/16). Patient describes her pain as beginning midsternum/epigastric area radiating to her right jaw and back of neck. Patient qualifies pain as burning sensation and constant and became nauseated and SOB". Cardiology consult for further evaluation of chest pain symptoms. Records reviewed and noted to have negative stress test in 2009, 2012, and April 2016. Patient confirms above data. She reports intermittent left-sided chest pressure/ burning sensation over the past few weeks that occurs about once per week at rest and with walking. She reports symptoms last for a few minutes and then gradually subside. She denies any palpitations, dizziness, radiation to her left arm. Does report yesterday had some radiation to her right jaw area in the back of her neck. She does report increased overall shortness of breath and dyspnea on exertion from her baseline over the past few weeks. Reports also increasing fatigue. She denies any active bleeding or blood loss. Denies ever having left heart catheterization. She denies any recent fever, chills, nausea, vomiting, diarrhea, or cold-like symptoms. Past Med Surg Social Fam HX - Past Medical History Attestation: Yes The following information was validated with the patient. Source: patient, old records reviewed Medical history: COPD, diabetes, GERD, hyperlipidemia, hypertension, liver disease Psychiatric history: no psych history - Past Surgical History Surgical History: appendectomy, breast surgery, cholecystectomy, hysterectomy, JUAN CARLOS/BSO - Social History Smoking Status: Current every day smoker Packs per day: 1/2 to 1 PPD Smokeless Tobacco Status: No Alcohol use: none Drug use: none - Family History Mother Race: Family Member Ethnicity: Non- Living Status: Still Living Hx Family Cardiac Disorders: Yes (HTN, Strokes x2) Father Race: Family Member Ethnicity: Non- Living Status: Age at : 58 Cause of : Complications of DM Hx Family Cardiac Disorders: Yes (AR) Hx Family Endocrine Disorder: Yes (DM) Hx Family Neurologic Disorders: Yes Brother Race: Family Member Ethnicity: Non- Living Status: Age at : 58 Cause of : AR Hx Family Cardiac Disorders: Yes (AR) Sister Race: Family Member Ethnicity: Non- Living Status: Age at : 60 Cause of : Complications from DM Hx Family Endocrine Disorder: Yes (DM) Medications and Allergies Tiotropium [Spiriva] 18 mcg IH DAILY 30 Days 03/17/16 [Rx] Metformin HCl [Glucophage] 1,000 mg PO BID 03/28/16 [History] Aspirin 81 mg PO DAILY 05/02/16 [History] Metoprolol [Lopressor] 25 mg PO BID 05/02/16 [History] Omeprazole [PriLOSEC] 40 mg PO DAILY #30 cap 05/02/16 [Rx] Rosuvastatin Calcium [Crestor] 40 mg PO DAILY 05/02/16 [History] Insulin ASPART [Novolog Flexpen] 6 - 14 unit SQ TID PRN 05/27/16 [History] Insulin Glargine [Lantus] 23 unit SQ HS 05/27/16 [History] Isosorbide MONOnitrate (24 HR) [Imdur] 60 mg PO DAILY 05/27/16 [History] Albuterol Sulfate [Ventolin Hfa] 2 puff IH Q6H PRN 07/18/16 [History] Lisinopril 2.5 mg PO DAILY 07/18/16 [History] Ondansetron ODT [Zofran ODT] 4 mg PO Q8H PRN 07/18/16 [History] Allergies No Known Allergies Allergy (Verified 07/18/16 20:09) All Systems Review: A 10-system review of systems was performed and is negative for pertinent findings except as documented above in the HPI. - Constitutional Constitutional: fatigue - Cardiovascular Cardiovascular: as per HPI, chest pain at rest, chest pain with exertion, dyspnea at rest, dyspnea on exertion Physical Examination Vital Signs, Last 4 Hours Temp Pulse Resp BP Pulse Ox 07/19/16 07:21 98.1 F 86 16 133/76 93 07/19/16 05:00 103/62 General: Conversant, No Apparent Distress HEENT: Atraumatic, Normocephaly, Mucus Membranes Moist Neck: No JVD, Normal carotid pulses Cardiac: Reg Rate and Rhythm, Normal S1 and S2, No Murmur Lungs: Normal Breath Sounds, No Wheeze, Rales, Rhonchi, Other (Positive dry, nonproductive cough noted-- reports chronic) Neuro: Alert and responsive, No focal deficits noted Abdomen: Soft, Non-Tender Skin: No rashes noted on visualized skin Musculoskeletal: No Chest Wall Tenderness Extremities: No Edema, Normal Pulses Results 07/19/16 04:08 07/19/16 04:08 Lab Results Laboratory Tests 07/18/16 07/19/16 07/19/16 19:30 04:08 04:08 INR 1.2 Magnesium 2.0 Troponin I 0.00 LDL Cholesterol, Calc 77 07/19/16 04:08 INR Magnesium Troponin I 0.00 LDL Cholesterol, Calc ITS Impressions Chest X-Ray 07/18/16 19:14 IMPRESSION: No evidence of acute cardiopulmonary disease. D/ / Kevin Quintana MD / Kevin Quinatna MD Interpreting Provider: Kevni Quintana MD Active Medications Acetaminophen (Tylenol) 650 mg PO Q6HR PRN PRN Reason: Mild Pain (1-3) Stop: 01/17/17 22:23 Albuterol Sulfate (Albuterol Inhaler) 2 puff IH Q6H PRN PRN Reason: Shortness Of Breath Stop: 01/17/17 22:30 Aspirin (Aspirin) 81 mg PO DAILY [facility] Stop: 01/18/17 09:01 Dextrose/Water (Dextrose 50% (Syg)) 25 ml IVP AD PRN PRN Reason: Hypoglycemia Stop: 01/17/17 22:37 Glucagon (Glucagen) 1 mg IM ONCE PRN PRN Reason: Hypoglycemia Stop: 01/17/17 22:37 Glucose (Gluctose) 15 gm PO ONCE PRN PRN Reason: Hypoglycemia Stop: 01/17/17 22:37 Glucose (Gluctose) 30 gm PO ONCE PRN PRN Reason: Hypoglycemia Stop: 01/17/17 22:37 Heparin Sodium (Porcine) (Heparin) 5,000 unit SQ Q8HCO RUBEN Stop: 01/18/17 06:01 Last Admin: 07/19/16 04:55 Dose: 5,000 unit Dextrose (Dextrose 5%) 1,000 mls @ 100 mls/hr IVC .Q10H PRN PRN Reason: HYPOGLYCEMIA Stop: 01/17/17 22:37 Insulin Detemir (Levemir) 23 unit SQ HS [facility] Stop: 01/18/17 21:01 Insulin Human Lispro (Humalog) 0 units SQ TIDAC RUBEN PRN Reason: Protocol Stop: 01/18/17 07:31 Insulin Human Lispro (Humalog) 0 units SQ HS RUBEN PRN Reason: Protocol Stop: 01/18/17 21:01 Isosorbide Mononitrate (Imdur) 60 mg PO DAILY [facility] Stop: 01/18/17 09:01 Lisinopril (Zestril) 2.5 mg PO DAILY [facility] Stop: 01/18/17 09:01 Metoprolol Tartrate (Lopressor) 25 mg PO BID [facility] Stop: 01/18/17 09:01 Naloxone HCl (Narcan) 0.4 mg IVP Q2MIN PRN PRN Reason: Opioid Reversal Stop: 01/17/17 22:23 Nitroglycerin (Nitroglycerin) 0.4 mg SL Q5MIN PRN PRN Reason: Chest Pain Stop: 01/18/17 04:50 Last Admin: 07/19/16 05:02 Dose: 0.4 mg Ondansetron HCl (Zofran) 4 mg IVP Q8HR PRN PRN Reason: Nausea And Vomiting Stop: 01/17/17 22:23 Pantoprazole Sodium (Protonix) 40 mg IVP DAILY@0630 [facility] Stop: 01/18/17 06:01 Last Admin: 07/19/16 05:55 Dose: Not Given Rosuvastatin Calcium (Crestor) 40 mg PO DAILY [facility] Stop: 01/18/17 09:01 Tiotropium [place] (Spiriva) 18 mcg IH DAILY [facility] PRN Reason: Protocol Stop: 01/18/17 09:01 - Imaging and Cardiology Chest Xray: report reviewed Stress Test: report reviewed - EKG Interpretation EKG results cardiology: personally reviewed, normal ECG, sinus rhythm, no diagnostic ischemia, other (Telemetry reviewed with average heart rate past 24 hrs 77, sinus rhythm, no events noted) Consult Discharge Plan - Plan Referrals: Polo Martinez MD [Primary Care Provider] -
[2016-07-19] MEDS: Aspirin 81 MG TAB.CHEW PO SCH (08:24)
[2016-07-19] MEDS: Isosorbide MONOnitrate (24 HR) 60 MG TAB.ER.24H PO SCH (08:24)
[2016-07-19] MEDS: Insulin LISPRO 300 UNITS/3 ML VIAL SQ SCH ×3 (08:24→15:33)
[2016-07-19] MEDS ORDERED: *HR* Metformin 500 MG TABLET PO SCH (09:00)
[2016-07-19] MEDS ORDERED: Heparin 1,000 UNITS/500 mL NS 500 ML ONE (10:12)
[2016-07-19] MEDS ORDERED: *HR* Heparin 10,000 UNIT/10 ML VIAL ONE (10:12)
[2016-07-19] MEDS ORDERED: Nitroglycerin 1,000 MCG/10 ML VIAL IV ONE (10:12)
[2016-07-19] MEDS ORDERED: 0.9 % Sodium Chloride 1,000 ML ONE ×2 (10:12→10:25)
--- NOTE | 2016-07-19 10:18 | Pre-Sedation Evaluation ---
Pre-sedation evaluation - Pre-sedation checklist Date of procedure: 07/19/16 Procedure: heart cath Recent Vitals: Last Vital Signs Temp 98.1 F 07/19/16 07:21 Pulse 86 07/19/16 07:21 Resp 16 07/19/16 07:21 BP 133/76 07/19/16 07:21 Pulse Ox 93 07/19/16 07:21 H&P (including ROS) documented in medical record: Yes Previous reaction to sedatives/anesthetics: No Dietary Status: NPO after Midnight Airway Assessment: Patient can open mouth completely, TMJ function normal, Micrognathia (under-bite, receding chin) absent, Neck with adequate range of motion Dentition: dentures removed Possible difficult airway: No ASA Classification *see protocol: CLASS II-Mild systemic disease Plan of Care: Pt appropriate candidate for procedure/moderate/conscious sedation , Risks/benefits of procedure/sedation discussed w/ patient/family
[2016-07-19] MEDS ORDERED: *HR* Midazolam HCl 2 MG/2 ML VIAL ONE (10:24)
[2016-07-19] MEDS ORDERED: *HR* FentaNYL (PF) 100 MCG/2 ML VIAL ONE (10:25)
[2016-07-19] MEDS ORDERED: *HR* Bivalirudin 250 MG VIAL IVC ONE (10:51)
[2016-07-19] MEDS: Tiotropium 18 MCG inhalation IH SCH (11:15)
[2016-07-19] MEDS ORDERED: *HR* Ticagrelor 90 MG TABLET ONE (11:21)
[2016-07-19] MEDS ORDERED: 0.9 % Sodium Chloride 1,000 ML IVC SCH (11:45)
--- NOTE | 2016-07-19 14:16 | Internal Med Progress Note ---
Date of Encounter: 07/19/16 Time of Encounter: 09:30 - Assessment and plan (1) CAD (coronary artery disease) Current Visit: Yes Status: Acute Assessment and plan: Patient was taken to the [facility] today. She did have a stent placed. Continue Imdur, Lopressor, aspirin. Continue telemetry Qualifiers: Coronary Disease-Associated Artery/Lesion type: [place] artery [place] vs. transplanted heart: [place] heart Associated angina: angina presence unspecified Qualified Code(s): I25.10 - Atherosclerotic heart disease of [place] coronary artery without angina pectoris (2) Chest pain Current Visit: No Status: Acute Assessment and plan: Patient reports extensive history of chest pain. She reports midsternal burning with radiation to her right back and right neck. This began at 5:00 yesterday p.m. it was constant she denies any belching or reflux symptoms. She does report shortness of breath and nausea, no diaphoresis. At its worst it was a 10 out of 10. Currently during examination to a 0 out of 10. Is not reproducible with inspiration, movement, or palpation. Patient had a stress test on 04/29/2016. It was negative for ischemia or infarct and gated EF was greater than 70%. Patient went to the [facility] this morning. She had a stent placed. Report is not available at this time. Patient was moved to another nursing unit. Custodial Laborer for pain Pain control as needed Cardiology will follow up in the morning. Qualifiers: Chest pain type: unspecified Qualified Code(s): R07.9 - Chest pain, unspecified (3) COPD (chronic obstructive pulmonary disease) Current Visit: Yes Status: Chronic Assessment and plan: No acute exacerbation. Chest x-ray was negative for any acute cardiopulmonary process. Continue home medications. Qualifiers: COPD type: COPD with acute exacerbation Qualified Code(s): J44.1 - Chronic obstructive pulmonary disease with (acute) exacerbation (4) Hypertension Current Visit: Yes Status: Chronic Assessment and plan: Chronic. Continue home medications. Qualifiers: Hypertension type: essential hypertension Qualified Code(s): I10 - Essential (primary) hypertension (5) Nicotine abuse Current Visit: Yes Status: Chronic Assessment and plan: Patient states that she is still smoking approximately 1 PPD. She said she is not interested in smoking cessation materials or troubles at this time. This should be reassessed prior to discharge. - Subjective Interval history: Patient reports midsternal burning with radiation into her right back and right posterior neck. She said it began at about 5 PM yesterday. She said it is constant and rated it at its worst 10 out of 10. During exam she reports that she is pain-free. She does have a history of GERD and she denies belching or any reflux symptoms. She does report shortness of breath and nausea with the pain and denies diaphoresis. She says that she has the pain 1-2 times a week and reports that it does get worse with food. Pain was not reproducible to palpation and was not reproducible with deep inspiration. O2 sat was 96% on room air, pulse was 63, respirations were 18. While I was seeing patient, cardiology came in and said that she will be going to the [facility]. - Constitutional Vitals: Temp Pulse Resp BP Pulse Ox 98.1 F 86 16 133/76 93 07/19/16 07:21 07/19/16 07:21 07/19/16 07:21 07/19/16 07:21 07/19/16 07:21 General appearance: Present: cooperative, mild distress, A&O X 3, pleasant, answers questions appropriately - Head Head exam: Present: normal inspection - Eye Eye exam: Present: normal appearance, conjuntiva pink - ENT ENT exam: Present: mucous membranes moist, normal exam - Neck Neck exam general surgery: Present: normal inspection. Absent: lymphadenopathy , tenderness - Respiratory Respiratory exam: Present: decreased breath sounds. Absent: rales, respiratory distress, rhonchi, stridor, wheezes - GI/Abdominal GI/Abdominal exam: Present: normal bowel sounds, soft. Absent: distended, hepatomegaly, tenderness - Extremities Exam Extremities exam: Present: full ROM, normal capillary refill, normal inspection , warm. Absent: tenderness - Neurological Exam Neurological exam: Present: alert, oriented X3, no focal deficits, strengths equal and symetr throughout Internal Medicine: Result - Labs CBC & Chem 7: 07/19/16 04:08 07/19/16 04:08 Labs: Short CBC 07/19/16 Range/Units 04:08 WBC 10.5 (4.3-11.1) K/mcL Hgb 13.6 (11.5-15.4) g/dL Hct 39.5 (35.3-44.9) % Plt Count 201 (140-400) K/mcL Neutrophils # 5.7 (1.6-8.9) K/mcL BMP 07/19/16 04:08 Sodium 138 Potassium 4.0 Chloride 105 Carbon Dioxide 25 BUN 11 Creatinine 0.69 Glucose 84 Calcium 8.8 Cardiac Enzymes 07/19/16 07/19/16 Range/Units 04:08 09:49 Troponin I 0.00 0.00 (0-0.03) ng/mL Liver Function 07/19/16 Range/Units 04:08 Total Bilirubin 0.7 (0.2-1.2) mg/dL AST 25 (5-34) Units/L ALT 19 (0-55) Units/L Alkaline Phosphatase 125 (38-126) Units/L Albumin 3.2 L (3.5-5.0) g/dL - ABG Interpretation ABG results: PT/INR, D-dimer PT 12.9 Seconds (9.4-12.1) H 07/19/16 04:08 Consult Discharge Plan - Plan Referrals: Kaitlin Martin CNP [Partnered Physician] - (office will call patient at home due to office makes their own appointment) Polo Martinez MD [Primary Care Provider] - 07/24/16 10:00 am
--- NOTE | 2016-07-19 14:27 | Invasive Diagnostic Lab Proc ---
Name: Tram Mcclure Date of Study: 07/19/2016 Date: 1955 Ht: 66.1in Medical Record#: [id number] Age: 61 Wt: 165.35lb Gender: Female BSA: 1.85 Order #: [id number] BMI: 26.57 Physicians Procedure Physician: Elin Modi MD, [facility] Referring MD: Referring MD: Staff Name Position Time In Lucy Eller RT (R) Scrub 10:33 AM Brigitte Marte RN Monitor 10:33 AM Helen Hurtado RN Fermenting Cellars Receiver 10:33 AM Dee Whelan RT (R) 10:33 AM Indications Indication Unstable Angina Procedures Performed Procedure L HRT ARTERY/VENTRICLE ANGIO PRQ CARD GREGORY STENT W/ANGIO 1 VSL Pre-Procedure Checklist Informed consent is complete signed and on chart. H\\T\\P is on chart. ID band is on and ID verified with patient. Patient NPO for procedure The procedure was described for the patient and questions were answered. Blood Pressure: 133/76 ECG is on chart. Rhythm: NSR Plan of Care Patient will tolerate the procedure without complications. Adequate level of comfort will be maintained. Hemodynamics will remain stable Patient will recover from procedure without complications. Respiratory function will be maintained. Cardiac rhythm will remain stable. Patient temperature will be maintained. Patient and/or family have verbalized understanding of the procedure. Patient Education Intravenous Access Time IV Size Location DC'd Fluid/Drip Rate Units RN 10:09 AM 20g 1 /" Patent On Arrival Rt Wrist 0.9NaCl 25 ml/hr Brigitte Marte RN Allergies No Known Allergies Vital Signs Time BP (mmHg) HR (bpm) O2 Sat. RR (bpm) LOC 139 / 78 77 94 % 16 5 = Fully awake and oriented or at pre-proc level 10:34 AM / % 5 = Fully awake and oriented or at pre-proc level 10:34 AM / % 4 = Oriented but drowsy 10:49 AM / % 4 = Oriented but drowsy 11:04 AM / % 4 = Oriented but drowsy 10:32 AM 139 / 78 75 96 % 11 10:37 AM 128 / 74 73 96 % 12 10:42 AM 113 / 68 69 91 % 8 10:47 AM 106 / 61 70 92 % 17 10:52 AM 112 / 52 76 92 % 10:57 AM 111 / 65 240 93 % 10:59 AM 100 / 62 48 93 % 15 11:02 AM 109 / 69 71 94 % 15 11:07 AM 148 / 78 81 95 % 9 11:12 AM 124 / 73 78 94 % 11 11:17 AM 129 / 76 79 93 % 20 11:22 AM 133 / 72 84 94 % 11:27 AM 133 / 66 80 93 % 11:19 AM / % 4 = Oriented but drowsy 11:45 AM 109 / 73 69 93 % 18 5 = Fully awake and oriented or at pre-proc level 12:00 PM 121 / 70 72 96 % 18 5 = Fully awake and oriented or at pre-proc level 12:15 PM 119 / 73 73 97 % 18 5 = Fully awake and oriented or at pre-proc level 12:30 PM 149 / 86 71 94 % 18 5 = Fully awake and oriented or at pre-proc level 12:45 PM 132 / 72 67 98 % 18 5 = Fully awake and oriented or at pre-proc level 01:00 PM 125 / 74 81 99 % 18 5 = Fully awake and oriented or at pre-proc level 01:16 PM 128 / 72 69 98 % 20 5 = Fully awake and oriented or at pre-proc level 01:30 PM 123 / 74 68 98 % 18 5 = Fully awake and oriented or at pre-proc level 01:45 PM 130 / 69 66 98 % 18 5 = Fully awake and oriented or at pre-proc level 02:00 PM 125 / 77 69 97 % 18 5 = Fully awake and oriented or at pre-proc level 02:15 PM 144 / 71 69 % 18 5 = Fully awake and oriented or at pre-proc level Procedural Medications Time Medication Dose Units Method Given By 10:34 AM Oxygen 2 L/min nasal cannula Helen Hurtado RN 10:36 AM Versed 2 mg Intravenous Helen Hurtado RN 10:36 AM Fentanyl 50 mcg Intravenous Helen Hurtado RN 10:40 AM Lidocaine 2% 17 ml Subcutaneous Elin Modi MD, FACC 10:41 AM Oxygen 4 L/min nasal cannula Helen Hurtado RN 11:11 AM Nitroglycerin 200 mcg Intracoronary Elin Modi MD, FACC 11:00 AM Angiomax 0.75mg/kg bolus: 11 ml Intravenous Bryant, Helen RN 11:00 AM Angiomax 1.75mg/kg/hr: 26 ml/hr Intravenous Helen Hurtado RN 11:21 AM Brilinta 180 mg Orally ( crushed) Helen Hurtado RN ASA Classification: CLASS II- Mild systemic disease (i.e. well-controlled diabetes, hypertension, asthma, cigarette smoking) Alberto Score Preprocedure Postprocedure Activity 2- Moves 4 extremities sustained head lift Activity 2- Moves 4 extremities sustained head lift Circulation 2- SBP +/= 20 points of pre-anesthetic level Circulation 2- SBP +/= 20 points of pre-anesthetic level Consciousness 2- Awake and alert oriented x 3 Consciousness 2- Awake and alert oriented x 3 O2 Saturation 2- Able to maintain O2 satruation of 92% on room air O2 Saturation 2- Able to maintain O2 satruation of 92% on room air Respiratory 2- Able to deep breathe and cough well Respiratory 2- Able to deep breathe and cough well Total Score 10 Total Score 10 Contrast Agent: Isovue Diagnostic Contrast: 154 ml Total Contrast: 154 ml Fluoro Dose: 750 mGy Procedure Log Time Note Enter By 10:23 AM Case Start 10:31 AM Vitals capture started with the following parameters, Patient=Adult, Interval=5 min, Initial Buwkrktf=447 mmHg, Deflation Rate=5 mmHg, Cuff placed on Right Arm 10:32 AM Recorded ECG: HR=79 Condition=Condition 1 10:32 AM HR=75 bpm, SPDZ=471/78 mmhg, SpO2=96.0 %, Resp=11 B/min 10:33 AM Pt arrived to lab asst 2 at 10:33 scoates 10:33 AM Patient charges- Angio tray pack, Navilyst 3mm J, Pulse Oximetry and ACIST tubing and transducer scoates 10:33 AM Case Delayed No scoates 10:33 AM Physician arrived 10:33 scoates 10:33 AM Meet and greet completed scoates 10:33 AM Sign in performed according to hospital policy. scoates 10:33 AM Procedure start 10:33 scoates 10:33 AM Lucy Eller RT (R) Position: Scrub Time in: 10:33 scoates 10:33 AM Brigitte Marte RN Position: Monitor Time in: 10:33 scoates 10:33 AM Helen Hurtado RN Position: Fermenting Cell[employer] Receiver Time in: 10:33 scoates 10:34 AM Dee Whelan RT (R) Position: Time in: 10:33 scoates 10:34 AM Time: :34 Oxygen on at 2 L/min per nasal cannula by Helen Hurtado RN scoates :34 AM Time: 10:34 Patient comfortable and pain free: Yes scoates 10:34 AM Time: 10:34LOC: 5 = Fully awake and oriented or at pre-proc level scoates 10:34 AM Clinical Presentation: Stable angina scoates 10:36 AM Time: 10:36 Versed 2 mg Intravenous Given by Helen Hurtado RN scoates 10:36 AM Time: 10:36 Fentanyl 50 mcg Intravenous Given by Helen Hurtado RN scoates 10:37 AM HR=73 bpm, RURU=769/74 mmhg, SpO2=96.0 %, Resp=12 B/min, Comment=sr 10:38 AM Pressure channel 1 zero failed. 10:39 AM Pressure channel 1 zero failed. 10:39 AM Pressure channel 1 zeroed. 10:40 AM Time out performed according to hospital policy scoates 10:41 AM Time: 10:40 17 ml Lidocaine 2% to right groin Subcutaneous Given by Elin Modi MD, [facility] scoates 10:41 AM Time: 10:41 Oxygen on at 4 L/min per nasal cannula by Helen Hurtado RN scoates 10:42 AM HR=69 bpm, TTCA=618/68 mmhg, SpO2=91.0 %, Resp=8 B/min, Comment=sr 10:43 AM Access obtained by percutaneous puncture. 5Fr 10cm Terumo [place] sheath placed in right Femoral artery. [id number] scoates 10:43 AM 5Fr FL 4 catheter inserted over the wire DN scoates 10:44 AM LCA angiography performed in multiple views. scoates 10:45 AM Recorded Pressure: Ao, HR=66, Condition=Condition 1 (Aorta) Ao 89/56/72 10:47 AM HR=70 bpm, ZFUD=102/61 mmhg, SpO2=92.0 %, Resp=17 B/min, Comment=sr 10:47 AM Catheter removed scoates 10:47 AM 5Fr FR 4 catheter inserted over the wire DNC scoates 10:48 AM LCA angiography performed in multiple views. scoates 10:49 AM Coronary Dominance: right scoates 10:49 AM Recorded Pressure: Ao, HR=70, Condition=Condition 1 (Aorta) Ao 81/56/68 10:49 AM Time: 10:34 Patient comfortable and pain free: Yes scoates 10:49 AM Time: 10:34LOC: 4 = Oriented but drowsy scoates 10:49 AM PCI Status Urgent scoates 10:50 AM Lesion found in Proximal RCA. Pre Stenosis: 90 Pre NICHOLE Flow: scoates 10:50 AM Lesion found in Mid RCA. Pre Stenosis: 90 Pre NICHOLE Flow: scoates 10:50 AM Catheter removed scoates 10:50 AM 5Fr Pigtail catheter inserted over the wire DNC scoates 10:50 AM Catheter selectively placed in left ventricle scoates 10:51 AM Pressure channel 1 zeroed. 10:51 AM Recorded Pressure: LV, HR=77, Condition=Condition 1 (Left Ventricle) LV 83/12/14 10:51 AM Bolus angiogram of left Ventricle complete: 8 ml/sec for a total of 24 mls scoates 10:51 AM Recorded Pressure: LV, Ao, HR=55, Condition=Condition 1 (Left Ventricle) LV 87/23/28, (Aorta) Ao 67/39/54 10:52 AM Pressure channel 1 zeroed. 10:52 AM HR=76 bpm, FGKN=282/52 mmhg, SpO2=92.0 %, Comment=sr 10:52 AM Sheath exchanged for a 6 Fr 11 cm Travefy Destination sheath [id number] scoates 10:53 AM 6Fr JR 4 [place] guide catheter was used to cannulate the PCI vessel successfully. reused? No scoates 10:54 AM .014 [place] 180cm guide wire across target lesion- successful. reused? No scoates 10:54 AM 2.5 mm x 15 mm Emerge Monorail balloon across target lesion- successful. reused? No scoates 10:57 AM KR=002 bpm, ECLX=773/65 mmhg, SpO2=93.0 %, Comment=sr 10:58 AM Recorded Pressure: Ao, HR=91, Condition=Condition 1 (Aorta) Ao 85/50/65 10:59 AM NIBP STAT measurement started. 10:59 AM HR=48 bpm, XRGD=325/62 mmhg, SpO2=93.0 %, Resp=15 B/min, Comment=sr 11:00 AM Time: 11:19 Angiomax 0.75mg/kg bolus: 11 ml Intravenous Given by Helen Hurtado RN Alonzo pump scoates 11:00 AM Time: 11:20 Angiomax 1.75mg/kg/hr: 26 ml/hr Intravenous Given by Helen Hurtado RN Alonzo pump scoates 11:01 AM Recorded Pressure: Ao, HR=77, Condition=Condition 1 (Aorta) Ao 101/62/79 11:01 AM Balloon inflated @ 8 constance for 20 seconds mid rca scoates 11:02 AM Balloon inflated @ 10 constance for 20 seconds proximal rca scoates 11:02 AM HR=71 bpm, VKUS=872/69 mmhg, SpO2=94.0 %, Resp=15 B/min, Comment=sr 11:03 AM Balloon catheter removed intact. scoates 11:04 AM Time: 10:49 Patient comfortable and pain free: Yes scoates 11:04 AM Time: 10:49LOC: 4 = Oriented but drowsy scoates 11:05 AM 3.5mm x 38mm Synergy drug-eluting stent across target lesion- successful Lot #[id number] scoates 11:05 AM Stent deployed @ 12 constance for 30 seconds scoates 11:05 AM Recorded Pressure: Ao, HR=70, Condition=Condition 1 (Aorta) Ao 122/79/99 11:06 AM Stent balloon reinflated @ 16 constance for 15 seconds scoates 11:07 AM Stent delivery system removed intact. scoates 11:07 AM HR=81 bpm, NELC=242/78 mmhg, SpO2=95.0 %, Resp=9 B/min, Comment=sr 11:08 AM Recorded Pressure: Ao, HR=81, Condition=Condition 1 (Aorta) Ao 146/81/110 11:08 AM 3.75 mm x 15mm NC Emerge balloon across target lesion- successful. reused? No scoates 11:09 AM Balloon inflated @ 20 constance for 17 seconds scoates 11:09 AM Balloon inflated @ 20 constance for 15 seconds scoates 11:10 AM Balloon inflated @ 20 constance for 10 seconds scoates 11:10 AM Balloon catheter removed intact. scoates 11:11 AM Time: 11:11 Nitroglycerin 200 mcg Intracoronary Given by Elin Modi MD, [facility] scoates 11:12 AM HR=78 bpm, LEYV=055/73 mmhg, SpO2=94.0 %, Resp=11 B/min, Comment=sr 11:17 AM HR=79 bpm, JPIR=397/76 mmhg, SpO2=93.0 %, Resp=20 B/min, Comment=sr 11:18 AM 4.0 mm x 12mm NC Emerge balloon across target lesion- successful. reused? No scoates 11:18 AM Balloon inflated @ 20 constance for 20 seconds scoates 11:18 AM Balloon inflated @ 20 constance for 15 seconds scoates 11:19 AM Time: 11:04 Patient comfortable and pain free: Yes scoates 11:19 AM Time: 11:04LOC: 4 = Oriented but drowsy scoates 11:21 AM Time: 11:21 Brilinta 180 mg Orally(crushed) Given by Helen Hurtado RN scoates 11:22 AM HR=84 bpm, NSYI=927/72 mmhg, SpO2=94.0 %, Comment=sr 11:23 AM Procedure completed at 11:23 scoates 11:23 AM Sign out completed: Radiation Dose 750 mGy Fluoro Time: 8.5 Isovue 370 - 200ml contrast 154 ml given by Elin Modi MD, [facility]. Complications: NoneCardiac Rehab Consult needed: YesConfirmed administered medications: Yes scoates 11:24 AM Isovue 370 - 500ml,1 Bottle(s) used. scoates 11:24 AM Sheath left in place to be pulled on floor/holding area scoates 11:24 AM Post ECG NSR scoates 11:27 AM HR=80 bpm, TOEV=662/66 mmhg, SpO2=93 % 11:29 AM Post Blood Pressure 133/66 scoates 11:29 AM 11:29 Post Pulses Bilateral DP \\T\\ PT 2+ scoates 11:30 AM Information taught Cardiac Cath and PCI scoates 11:30 AM Education needs Procedure, Plan of Care, and Responsibilities of Patient in Care scoates 11:30 AM Learning barriers :None scoates 11:30 AM Education Methods Verbal scoates 11:30 AM Education evaluation Able to repeat information scoates 11:30 AM Site status No bleeding/hematoma - Rt Groin as reported by Lucy Eller RT (R) at 11:30 scoates 11:30 AM Opsite applied scoates 11:30 AM Plavix, Effient or Brilinta given Yes scoates 11:32 AM Delay to floor Bed availability scoates 11:32 AM Patient out of room: 11:32 scoates 11:32 AM Family not present at this time. scoates 11:33 AM Lesion found in Distal RCA. Pre Stenosis: 30 Pre NICHOLE Flow: scoates 11:33 AM Lesion found in Proximal LAD. Pre Stenosis: 30 Pre NICHOLE Flow: scoates 11:33 AM Lesion found in Mid LAD. Pre Stenosis: 40 Pre NICHOLE Flow: scoates 11:35 AM Time: 11:19LOC: 4 = Oriented but drowsy scoates 11:37 AM Lesion found in Proximal Circumflex. Pre Stenosis: 25 Pre NICHOLE Flow: scoates 11:37 AM Lesion found in Mid Circumflex. Pre Stenosis: 40 Pre NICHOLE Flow: scoates 11:37 AM Lesion found in Distal Circumflex. Pre Stenosis: 40 Pre NICHOLE Flow: scoates 11:58 AM Angiomaxx gtt off at present. kwitte 12:30 PM Patient c/o shortness of breath, skin pink warm and dry. O2 2L nc applied. Few fine rales post bases. EKG complete. Dr Modi aware. Will monitor closely, may be reaction from Brilinta. Patient tearful. RN provided phone for patient to call her daughter mprater 12:45 PM explained side effects of Brilinta to patient. Informed patient to call nurse if changes mprater 01:10 PM Patient c/o back pain tylenol 650mg po given mprater 01:23 PM Brigitte Marte RN called report to Helen MACHADO 2N mprater 01:30 PM Kezia Alvarado RN educating patient concerning Cardiac Rehab mprater 01:58 PM Right femoral artery sheath pulled per this RN. Manual pressure being held with Vpad at present. kwitte 02:13 PM Hemostasis obtained to right femoral artery. Dressing applied with tegaderm. Patient instructed on post sheath pull. Patient verbalized understanding. kwitte 02:20 PM Delay to floor Bed availability kwitte 02:20 PM Complications: None kwitte 02:20 PM Patient out of room: 14:20 kwitte 02:20 PM Patient transported via bed to 2N13 per Dee Tip RT and Theresa Vasquez RT. raymond Complications Complication None None Hemodynamics Pressures Site Systolic/A Wave Diastolic/V Wave Mean AO 89 56 72 AO 81 56 68 LV 83 12 14 LV 87 23 28 AO 67 39 54 AO 85 50 65 AO 101 62 79 AO 122 79 99 AO 146 81 110 Post Procedure Information Blood Pressure: 133/66 mmHg Rhythm: NSR Post procedural instructions were given Closure Device Time Device Success/Fail 07/19/2016 11:33:00 AM Manual Compression Site Checks Time Location Status Staff Sheath In? Note 11:30 AM Rt Groin No bleeding/hematoma Lucy Eller RT (R) Yes 11:45 AM Rt Groin No bleeding/ No Hematoma Lucy Eller RT (R) Yes 12:00 PM Rt Groin No bleeding/ No Hematoma Lucy Eller RT (R) Yes 12:15 PM Rt Groin No bleeding/ No Hematoma Marielos Alberto RN Yes 12:30 PM Rt Groin No bleeding/ No Hematoma Marielos Alberto RN Yes 12:45 PM Rt Groin No bleeding/ No Hematoma Marielos Alberto RN Yes 01:00 PM Rt Groin No bleeding/ No Hematoma Marielos Alberto RN Yes 01:16 PM Rt Groin No bleeding/ No Hematoma Marielos Alberto RN Yes 01:30 PM Rt Groin No bleeding/ No Hematoma Marielos Alberto RN Yes 01:45 PM Rt Groin No bleeding/ No Hematoma Zaki Aceves RN Yes 02:00 PM Rt Groin No bleeding/ No Hematoma Zaki Aceves RN 02:15 PM Rt Groin No bleeding/ No Hematoma Zaki Aceves RN Pulses Time Site Pre-Procedure Post-Procedure Note 07/19/2016 10:11:00 AM Bilateral DP \\T\\ PT 2+ 07/19/2016 10:11:00 AM Bilateral radial 2+ 11:29:00 AM Bilateral DP \\T\\ PT 2+ 07/19/2016 11:45:00 AM Bilateral DP \\T\\ PT 2+ 07/19/2016 12:00:00 PM Bilateral DP \\T\\ PT 2+ 07/19/2016 12:30:00 PM Bilateral DP \\T\\ PT 2+ 07/19/2016 12:45:00 PM Bilateral DP \\T\\ PT 2+ 07/19/2016 1:00:00 PM Bilateral DP \\T\\ PT 2+ 07/19/2016 1:16:00 PM Bilateral DP \\T\\ PT 2+ 07/19/2016 1:30:00 PM Bilateral DP \\T\\ PT 2+ 07/19/2016 2:00:00 PM Bilateral DP \\T\\ PT 2+ Updated by Zaki Aceves RN on 07/19/2016 2:21:05 PM Zaki Aceves RN electronically signed on 07/19/2016 2:21:36 PM with status of Final
--- NOTE | 2016-07-19 15:28 | Invasive Diagnostic Lab ---
Name: Tram Mcclure Date of Study: 07/19/2016 Date: 1955 Ht: 168.0 cm /66.1 in Medical Record#: [id number] Age: 61 Wt: 75. kg / 165.35 lb Account/Order#: [id number] Gender: Female BSA: 1.85 Order #: [id number] Fluoro Dose: 750 mGy BMI: 26.57 Procedure Physician: Elin Modi MD, [facility] Referring MD: Referring MD: Procedures Performed: LEFT HEART CATH Stent w/ PTCA Single Major Vessel Indications: Unstable Angina Impressions: There is severe one vessel coronary artery disease. The left ventricle is normal and has normal contractility EF 65% Patient had successful PTCA/Drug-Eluting Stent placement in the Proximal-Mid RCA. Recommendations: Dual antiplatelet therapy. Optimal medical therapy of patient's disease. Aggressive risk factor modification. Patient being referred for cardiac rehab. History/Risk Factors: GERD Diabetes Hypertension Dyslipidemia Procedure Access obtained in the right Femoral artery by percutaneous puncture Patient had successful PTCA/Drug-Eluting Stent placement in the Proximal-Mid RCA. Complications: None, None Contrast: Isovue 154ml Closure Device: Manual Compression Hemodynamics: Pressures Site Systolic/ A Wave Diastolic/ V Wave End Diastolic/ Mean HR AO 89 56 72 66 AO 81 56 68 70 LV 83 12 14 77 LV 87 23 28 54 AO 67 39 54 57 AO 85 50 65 91 AO 101 62 79 77 AO 122 79 99 70 AO 146 81 110 81 LV Ventriculography Ejection Method: LV Gram Ejection Fraction: 65% Wall Motion: WORKMAN Anterobasal Normal Anterolateral Normal Apical: Normal Inferoapical Normal Inferobasal Normal Coronary Dominance: right Lesion Findings/Interventions * Left Main Coronary Artery The LMCA is angiographically free of disease. * Left Anterior Descending There is a 30% stenosis in the Proximal LAD. There is a 40% stenosis in the Mid LAD. * Circumflex There is a 25% stenosis in the Proximal Circumflex. There is a 40% stenosis in the Mid Circumflex. There is a 40% stenosis in the Distal Circumflex. * Right Coronary Artery There is a 38 mm long, 90% stenosis in the Proximal and Mid RCA. The lesion has a NICHOLE flow of 3. An intervention was performed on the Proximal RCA with a final stenosis of 0%. There were no lesion complications. The final NICHOLE flow was 3. There is a 30% stenosis in the Distal RCA. Interventional Device(s) Vessel Segment Type Name Diameter (mm) Length (mm) Proximal RCA Balloon Emerge Monorail 2.5 15 Proximal RCA Drug Eluting Stent Synergy 3.5 38 Proximal RCA Balloon NC Emerge 3.75 15 Proximal RCA Balloon NC Emerge 4 12 Updated by Elin Modi MD, FACC on 07/19/2016 3:20:38 PM Elin Modi MD, FACC electronically signed on 07/19/2016 3:22:24 PM with status of Final
--- NOTE | 2016-07-19 16:37 | Electrocardiograph Report ---
[address] [address] Test Date: 2016-07-18 Pat Name: Tram Mcclure Department: 104 Room: 2N13 Gender: F Carder Blankets: : 1955 Requested By: Sushil Keene Order Number: [id number] Reading MD: Elin Modi Measurements Intervals [place] Rate: 83 P: 64 MO: 145 QRS: 65 QRSD: 89 T: 76 QT: 365 QTc: 405 Interpretive Statements SINUS RHYTHM Electronically Signed On 07-19-2016 16:35:47 EDT by Elin Modi
[2016-07-19] MEDS ORDERED: Insulin DETEMIR 100 UNIT/ML X5UNITS SQ SCH (21:00)
[2016-07-19] MEDS ORDERED: INSULIN GLARGINE SQ SCH (21:00)
[2016-07-19] MEDS ORDERED: Insulin LISPRO 300 UNITS/3 ML VIAL SQ SCH (21:00)
[2016-07-20 07:29] VITALS: BP 140/77
[2016-07-20] MEDS: Pantoprazole 40 MG VIAL IVP SCH (08:19)
--- NOTE | 2016-07-20 08:19 | Cardiology Progress Note ---
Date of Encounter: 07/20/16 Time of Encounter: 08:15 Assessment and Plan (1) Chest pain Current Visit: No Status: Acute Per Cardiology: Atypical chest pain symptoms that are mainly occurring at rest. Reporting increased dyspnea on exertion and fatigue. Trops 0.00 x 2. Had negative ST 2009 , 2012, and 04/2016. S/p [facility]--patient underwent PTCA/drug-eluting stent to proximal to mid RCA 90% stenosis, had otherwise nonobstructive CAD with proximal LAD 30%, mid LAD 40%, proximal circumflex 25%, mid circumflex 40%, distal circumflex 40%, and distal RCA 30%. Echo showed EF preserved 65%, normal diastolic function, no significant valvular dysfunction, no pulmonary hypertension, no segmental wall motion abnormalities. Currently on aspirin, plavix, statin, beta vick, TONNY inhibitor, and long-acting nitrate. Patient provided education regarding importance of aspirin and Plavix for at least 1 year uninterrupted. Right groin care provided. Cardiology will sign off, re- consult as needed, follow-up scheduled. All questions answered. Discussed with primary service and discharge pending today. Qualifiers: Chest pain type: unspecified Qualified Code(s): R07.9 - Chest pain, unspecified (2) Nicotine abuse Current Visit: Yes Status: Chronic Per Cardiology: Currently smoking half to one pack per day and his average one pack per day for 44 years. I did spend 3-5 times a day providing smoking cessation counseling. Discussion w patient/family: The assessment and plan as outlined above was discussed with the patient who expressed understanding and agreement. All questions were answered. Thank you for involving us in the care of your patient. Please call with any questions. Subjective Principal diagnosis: CP, CAD Interval history: Patient denies any chest pain, shortness of breath, palpitations. Denies any concerns or complaints overnight. Denies any right groin concerns. Objective Vital Signs, Last 4 Hours Temp Pulse Resp BP Pulse Ox 07/20/16 07:27 98.1 F 72 20 140/77 95 07/20/16 05:35 97.9 F 81 22 134/68 96 General: Conversant, No Apparent Distress HEENT: Atraumatic, Normocephaly, Mucus Membranes Moist Neck: No JVD, Normal carotid pulses Cardiac: Reg Rate and Rhythm, Normal S1 and S2, No Murmur Lungs: Normal Breath Sounds, No Wheeze, Rales, Rhonchi Neuro: Alert and responsive, No focal deficits noted Abdomen: Soft, Non-Tender Skin: No rashes noted on visualized skin, Other (Right groin site with mild ecchymosis, no hematoma, no bleeding, right dorsalis pedis and posterior tibial pulses 2+ palpable) Musculoskeletal: No Chest Wall Tenderness Extremities: No Clubbing, No Cyanosis, No Edema, Normal Pulses Results 07/19/16 04:08 07/19/16 04:08 Lab Results Laboratory Tests 07/18/16 07/19/16 07/19/16 19:30 04:08 04:08 Troponin I 0.00 0.00 LDL Cholesterol, Calc 77 07/19/16 09:49 Troponin I 0.00 LDL Cholesterol, Calc Active Medications Acetaminophen (Tylenol) 650 mg PO Q6HR PRN PRN Reason: Mild Pain (1-3) Stop: 01/17/17 22:23 Albuterol Sulfate (Albuterol Inhaler) 2 puff IH Q6H PRN PRN Reason: Shortness Of Breath Stop: 01/17/17 22:30 Aspirin (Aspirin) 81 mg PO DAILY [facility] Stop: 01/18/17 09:01 Last Admin: 07/19/16 08:24 Dose: 81 mg Clopidogrel Bisulfate (Plavix) 75 mg PO DAILY [facility] Stop: 01/19/17 09:01 Dextrose/Water (Dextrose 50% (Syg)) 25 ml IVP AD PRN PRN Reason: Hypoglycemia Stop: 01/17/17 22:37 Glucagon (Glucagen) 1 mg IM ONCE PRN PRN Reason: Hypoglycemia Stop: 01/17/17 22:37 Glucose (Gluctose) 15 gm PO ONCE PRN PRN Reason: Hypoglycemia Stop: 01/17/17 22:37 Glucose (Gluctose) 30 gm PO ONCE PRN PRN Reason: Hypoglycemia Stop: 01/17/17 22:37 Dextrose (Dextrose 5%) 1,000 mls @ 100 mls/hr IVC .Q10H PRN PRN Reason: HYPOGLYCEMIA Stop: 01/17/17 22:37 Insulin Detemir (Levemir) 23 unit SQ HS RUBEN Stop: 01/18/17 21:01 Last Admin: 07/19/16 21:22 Dose: 23 unit Insulin Human Lispro (Humalog) 0 units SQ TIDAC RUBEN PRN Reason: Protocol Stop: 01/18/17 07:31 Last Admin: 07/19/16 15:33 Dose: Not Given Insulin Human Lispro (Humalog) 0 units SQ HS [facility] PRN Reason: Protocol Stop: 01/18/17 21:01 Last Admin: 07/19/16 21:22 Dose: 2 units Isosorbide Mononitrate (Imdur) 60 mg PO DAILY [facility] Stop: 01/18/17 09:01 Last Admin: 07/19/16 08:24 Dose: 60 mg Lisinopril (Zestril) 2.5 mg PO DAILY [facility] Stop: 01/18/17 09:01 Last Admin: 07/19/16 08:25 Dose: 2.5 mg Metoprolol Tartrate (Lopressor) 25 mg PO BID [facility] Stop: 01/18/17 09:01 Last Admin: 07/19/16 21:23 Dose: 25 mg Naloxone HCl (Narcan) 0.4 mg IVP Q2MIN PRN PRN Reason: Opioid Reversal Stop: 01/17/17 22:23 Nitroglycerin (Nitroglycerin) 0.4 mg SL Q5MIN PRN PRN Reason: Chest Pain Stop: 01/18/17 04:50 Last Admin: 07/19/16 05:02 Dose: 0.4 mg Ondansetron HCl (Zofran) 4 mg IVP Q8HR PRN PRN Reason: Nausea And Vomiting Stop: 01/17/17 22:23 Pantoprazole Sodium (Protonix) 40 mg IVP DAILY@0630 [facility] Stop: 01/18/17 06:01 Last Admin: 07/19/16 05:55 Dose: Not Given Rosuvastatin Calcium (Crestor) 40 mg PO DAILY [facility] Stop: 01/18/17 09:01 Last Admin: 07/19/16 08:24 Dose: 40 mg Tiotropium Bode (Spiriva) 18 mcg IH DAILY [facility] PRN Reason: Protocol Stop: 01/18/17 09:01 Last Admin: 07/19/16 11:15 Dose: Not Given - Imaging and Cardiology Echo: report reviewed Cardiac cath: report reviewed Consult Discharge Plan - Plan Referrals: Kaitlin Martin CNP [Partnered Physician] - (office will call patient at home due to office makes their own appointment) Polo Martinez MD [Primary Care Provider] - 07/24/16 10:00 am
[2016-07-20] MEDS: Tiotropium 18 MCG inhalation IH SCH (08:20)
[2016-07-20] MEDS: Aspirin 81 MG TAB.CHEW PO SCH (08:26)
[2016-07-20] MEDS: Isosorbide MONOnitrate (24 HR) 60 MG TAB.ER.24H PO SCH (08:26)
[2016-07-20] MEDS: Insulin LISPRO 300 UNITS/3 ML VIAL SQ SCH (08:30)
--- NOTE | 2016-07-20 10:27 | Discharge Summary ---
Date of Encounter: 07/20/16 Time of Encounter: 09:45 - Discharge Diagnosis (1) Chest pain Priority: Primary Status: Acute Qualifiers: Chest pain type: precordial pain Qualified Code(s): R07.2 - Precordial pain (2) Diabetes mellitus, insulin dependent (IDDM), uncontrolled Priority: Secondary Status: Chronic Qualifiers: Diabetes mellitus complication status: without complication Qualified Code( s): E10.9 - Type 1 diabetes mellitus without complications (3) Hypertension Priority: Secondary Status: Chronic Qualifiers: Hypertension type: essential hypertension Qualified Code(s): I10 - Essential (primary) hypertension (4) Nicotine abuse Priority: Secondary Status: Chronic (5) CAD (coronary artery disease) Priority: Secondary Status: Acute Qualifiers: Coronary Disease-Associated Artery/Lesion type: [place] artery [place] vs. transplanted heart: [place] heart Associated angina: angina presence unspecified Qualified Code(s): I25.10 - Atherosclerotic heart disease of [place] coronary artery without angina pectoris - Discharge Medications Prescriptions: Clopidogrel [Plavix] 75 mg PO DAILY #30 tablet Home Medications: Tiotropium [Spiriva] 18 mcg IH DAILY 30 Days 03/17/16 [Rx] Metformin HCl [Glucophage] 1,000 mg PO BID 03/28/16 [History] Aspirin 81 mg PO DAILY 05/02/16 [History] Metoprolol [Lopressor] 25 mg PO BID 05/02/16 [History] Omeprazole [PriLOSEC] 40 mg PO DAILY #30 cap 05/02/16 [Rx] Rosuvastatin Calcium [Crestor] 40 mg PO DAILY 05/02/16 [History] Insulin ASPART [Novolog Flexpen] 6 - 14 unit SQ TID PRN 05/27/16 [History] Insulin Glargine [Lantus] 23 unit SQ HS 05/27/16 [History] Isosorbide MONOnitrate (24 HR) [Imdur] 60 mg PO DAILY 05/27/16 [History] Albuterol Sulfate [Ventolin Hfa] 2 puff IH Q6H PRN 07/18/16 [History] Lisinopril 2.5 mg PO DAILY 07/18/16 [History] Ondansetron ODT [Zofran ODT] 4 mg PO Q8H PRN 07/18/16 [History] Clopidogrel [Plavix] 75 mg PO DAILY #30 tablet 07/20/16 [Rx] Allergies/Adverse Reactions: Allergies No Known Allergies Allergy (Verified 07/18/16 20:09) Procedures/tests Complete & Pending: Procedures Performed prior 72 hours Category Date Time Status CL Cardiac Catheterization [CL] Routine Signaling Project Engineer 07/19/16 09:24 Completed ECG 12 lead ECG [ECG] Stat Y 07/19/16 11:37 Ordered EV echocardiogram Routine Y 07/19/16 09:23 Completed Date of admission: 07/18/16 20:43 Primary care physician: Polo Martinez MD Consults: 07/18/16 23:58 Consult to Cardiology [CONS] Routine Comment: Consulting Provider: Cardiology Cherise Reason for Consult: chest pain Call Completed: No 07/19/16 11:39 Consult to Cardiac Rehabilitation-Phase1 [CONS] Routine Comment: Reason for Consult: CAD s/p PCI Call Completed: Yes Discharging clinician: Anna Garsia Anticipated date of discharge: 07/20/16 - Patient Status Disposition: Home, Self-Care Condition: Good Functional capacity at discharge: independent ambulation Overall status at discharge: patient is back to baseline - Discharge Instructions Instructions: Chest Pain (DC), Diabetes Mellitus Type 2 in Adults (DC), Chronic Hypertension (DC) Follow Up With: Kaitlin Martin CNP [Partnered Physician] - (office will call patient at home due to office makes their own appointment) Polo Martinez MD [Primary Care Provider] - 07/24/16 10:00 am Additional Instructions: RISK FACTORS: STOP SMOKING: If you smoke, STOP. Smoking or tobacco use significantly increases your risk of heart disease because nicotine causes the arteries to narrow or constrict. It also causes fats to stick to the artery. Your chances of having a heart attack are greatly increased if you continue to smoke. For more information, call the education line for smoking cessation 3-490-[id number] EAT A LOW FAT/CHOLESTEROL/SODIUM DIET: This diet may help reduce your chances of having a heart attack. LIFTING: Avoid lifting anything more than 10 pounds for 5-7 days Prior to straining, laughing, sneezing and/or coughing, apply manual pressure directly over insertion site. ACTIVITY: You may walk or climb stairs as tolerated You can resume sexual activity as tolerated In general, you are encouraged to engage in a minimum of 30 minutes or more of moderate intensity physical activity, such as brisk walking, daily or at least 3 -4 times weekly BATHING Do not submerge the site into water (bath tub, hot tub, swimming pool) for 1 week. This can be a source for infection into the blood stream. You may shower after 24 hours SITE CARE: After 24 hours, you may remove the dressing and leave the site open to air. Keep the site clean and dry. Clean gently and pat dry. You can expect bruising and tenderness that gradually resolve within a week or two. Return to work as instructed per your physician Resume driving as instructed per physician Keep all scheduled follow up appointments Resume medications as instructed IMPORTANT: If prescribed a Platelet Aggregation Inhibitor such as, Plavix, Brilinta or Effient: Duration of therapy is minimum one year These medications are often used in combination with Aspirin in prevention of future heart attacks Never discontinue unless consult with your Buttermaker Helper STROKE (CVA) Risk factors for a stroke are: Age, cigarette smoking, diabetes, excessive alcohol consumption, family history, high blood pressure, overweight, physical inactivity, prior stroke, heart attack, diagnosis of carotid artery stenosis or other artery disease. Warning signs: Sudden numbness or weakness of the face, arm or leg; especially on one side of the body, sudden confusion, trouble speaking or understanding, sudden trouble seeing in one or both eyes, sudden trouble walking, dizziness, loss of balance or coordination, sudden severe headache with no cause. Call 911 or go to the Emergency Room. CONGESTIVE HEART FAILURE: If you have been diagnosed with Congestive Heart Failure (CHF) and your symptoms return, make an appointment with your physician Weigh yourself daily. Notify your physician if you have a weight gain of two or more pounds in one day or five or more pounds in one week. If you experience any difficulty breathing, please call 911 BLEEDING: Although the risk of bleeding is minimal, it can happen. If you have any bleeding from the site, apply firm pressure above the puncture site for 10-15 minutes. If the bleeding does not stop, continue manual pressure and call 911 Contact your physician if: You develop a fever greater than 101 degrees Fahrenheit Your site becomes reddened or has any drainage You have an increase in pain or burning at the site or if a large knot forms at the site. If you experience chest pain, shortness of breath, dizziness, or extreme tiredness, stop the activity and rest. Please notify your physicians office if you experience any of these symptoms and they are not relieved by rest please call 911! - Diet and Activity Activity: as per the cardiac rehab, increase activity as tolerated Diet: diabetic diet, low fat, low cholesterol, low salt diet Hospital course: Ms. Mcclure is a 61 year old female patient who was observed here after presented with chest pain. The history of diabetes mellitus type 2, hypertension and was evaluated by cardiology as she had a negative stress test in April 2016 which showed no reversible ischemia. Cardiology evaluated the patient and after discussing with the patient and in light of her multiple risk factors, she was recommended left heart catheterization. Patient underwent the procedure yesterday and was found to have 90% proximal to mid RCA stenosis for which she underwent PTCA with drug-eluting stent. She also then underwent a 2- D echocardiogram which showed normal ejection fraction of 65% with abnormal diastolic function. Currently she is chest pain-free. Cardiology recommends aspirin and Plavix for at least 1 year uninterrupted use along with statin, TONNY inhibitor and beta vick. She is stable to be discharged home and will follow up with cardiology for further management. - Time Spent with Patient Total time spent providing and/or coordinating discharge services: Less than 30 minutes (25 min) - Constitutional Vitals: Temp Pulse Resp BP Pulse Ox 98.1 F 72 20 140/77 95 07/20/16 07:27 07/20/16 07:27 07/20/16 07:27 07/20/16 07:27 07/20/16 07:27 General appearance: Present: cooperative, A&O X 3, pleasant, no acute distress, answers questions appropriately - Respiratory Respiratory exam: Present: CTAB. Absent: accessory muscle use, rales, rhonchi, wheezes - Cardiovascular Cardiovascular exam: Present: RRR, +S1, +S2. Absent: diastolic murmur, gallop, rubs, systolic murmur - Extremities Exam Extremities exam: Present: warm, radial pulses palpable and symetrical. Absent : calf tenderness, cyanotic, pedal edema - Neurological Exam Neurological exam: Present: alert, oriented X3, no focal deficits. Absent: facial droop, speech deficit - Attending Attestation This document has been at least partially created by Dragon medical voice recognition technology by Dr. Garsia. Errors in grammar, wording or other phrases may exist. If errors are found after the documentation is signed, they will be addressed individually in the addendum section of this document when appropriate.
--- NOTE | 2016-07-23 16:32 | Electrocardiograph Report ---
[place] [address] Test Date: 2016-07-19 Pat Name: Tram Mcclure Department: 106 Room: 2N13 Gender: F Dispatch Associate: : 1955 Requested By: Elin Modi Order Number: [id number] Reading MD: Elin Modi Measurements Intervals Trail Rate: 0 P: NV: 0 QRS: 0 QRSD: 0 T: 0 QT: 0 QTc: 0 Interpretive Statements Normal sinus rhythm Electronically Signed On 07-23-2016 16:30:51 EDT by Elin Modi
--- NOTE | 2016-07-23 16:36 | Electrocardiograph Report ---
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
== END 2016-07-20 11:05 | disposition home or self-care (01) ==
LOC: EMEROO 18:42 → 3BNU 18:42 → SUATTDRO 20:43 → 3BNU 21:40 → 2NNU 07-19 14:01
PROVIDERS: ADMIT Registered Nurse; ATTEND Internal Medicine

== ENCOUNTER 2017-10-23 20:20 | Observation (INO) ==
[2017-10-23 21:06] LABS: Basophils # 0.1 K/mcL (0.0-0.2); Basophils % 0.5 %; Eosinophils # 0.2 K/mcL (0.0-0.6); Eosinophils % 1.1 %; Hematocrit 41.2 % (35.3-44.9); Hemoglobin 14.7 g/dL (11.5-15.4); Immature Granulocytes % 0.5 % (0-4); Lymphocytes # 4.4 K/mcL (0.6-4.6); Lymphocytes % 29.1 %; Mean Corpuscular HGB Conc 35.7 g/dL (31.6-35.5); Mean Corpuscular Hemoglobin 30.3 pg (28.0-33.3); Mean Corpuscular Volume 84.9 fL (83.0-100.0); Mean Platelet Volume 10.2 fL (9.4-12.4); Monocytes # 0.9 K/mcL (0.0-1.3); Monocytes % 5.6 %; Neutrophils # 9.5 K/mcL (1.6-8.9); Platelet Count 273 K/mcL (140-400); Red Blood Count 4.85 M/mcL (3.82-4.97); Red Cell Distribution Width 13.4 % (11.5-14.5); Segmented Neutrophils % 63.2 %
[2017-10-23 21:12] LABS: INR 1.2; Prothrombin Time 13.2 Seconds (9.4-12.1)
[2017-10-23 21:15] LABS: Activated Partial Thrombo Time 28.8 Seconds (26.0-36.0)
[2017-10-23] MEDS ORDERED: Nitroglycerin 0.4 MG TAB.SUBL SL PRN (21:26)
--- NOTE | 2017-10-23 21:26 | Emergency Department Note ---
Disposition Clinical Impression: Chest pain Qualifiers: Chest pain type: unspecified Qualified Code(s): R07.9 - Chest pain, unspecified Disposition: Admitted As Inpatient Condition: Good Referrals: Polo Martinez MD [Primary Care Provider] - Forms: ED Satisfaction Letter Chest Pain HPI - General Chief Complaint: ED Chest Pain Stated Complaint: CHEST PAIN Time Seen by Provider: 10/23/17 20:23 Source: EMS Mode of arrival: EMS Limitations: no limitations Vital Signs Reviewed: Yes Nursing Notes Reviewed: Yes - History of Present Illness HPI Narrative: 62-year-old female history of CAD with one stent placed in June, diabetes, hypertension, hyperlipidemia who presents to the ER via EMS due to chest pain. Reports pain started roughly 3 hours prior to arrival. Pain starts under her xiphoid going up into her chest and into her arms. Reports associated nausea as well as dyspnea. She took one nitroglycerin prior to EMS arriving with improvement of her symptoms. She also received aspirin from the EMS crew. States this feels similar to when she had her stent placed in June. Denies any recent injuries. Has had a cough for a few weeks. No other complaints. Pt complaint: chest pain Onset (ago): hour(s) Duration: constant Onset: during rest Pain Location: substernal Severity scale (1-10): 6 Pain Radiation: RUE, LUE Improves with: nitroglycerin Worsens with: nothing Associated symptoms: Reports: nausea, dyspnea. Denies: vomiting Treatments prior to arrival chest pain: aspirin, nitroglycerin - Related Data On Oral Contraceptives: No Home Medications Medication Instructions Recorded Confirmed Metformin HCl [Glucophage] 1,000 mg PO BID 03/28/16 10/23/17 Aspirin 81 mg PO DAILY 05/02/16 10/23/17 Metoprolol [Lopressor] 25 mg PO BID 05/02/16 10/23/17 Rosuvastatin Calcium [Crestor] 40 mg PO HS 05/02/16 10/23/17 Insulin ASPART [Novolog Flexpen] 6 - 14 unit SQ TID PRN 05/27/16 10/23/17 Insulin Glargine [Lantus] 23 unit SQ HS 05/27/16 10/23/17 Albuterol Sulfate [Ventolin Hfa] 2 puff IH Q6H PRN 07/18/16 10/23/17 Lisinopril 2.5 mg PO DAILY 07/18/16 10/23/17 Pantoprazole Sodium [Protonix] 40 mg PO DAILY 08/06/16 10/23/17 Isosorbide MONOnitrate [Isosorbide 120 mg PO DAILY 10/23/17 10/23/17 Mononitrate ER] Previous Rx's Medication Instructions Recorded Tiotropium [Spiriva] 18 mcg IH DAILY 30 Days capsule 03/17/16 Clopidogrel [Plavix] 75 mg PO DAILY #30 tablet 07/20/16 Gabapentin [Gralise] 300 mg PO QDPC #7 tab.er.24h 10/18/17 PredniSONE [Deltasone] 40 mg PO QDPC #10 tablet 10/18/17 Allergies Allergy/AdvReac Type Severity Reaction Status Date / Time No Known Allergies Allergy Verified 10/23/17 20:35 All systems ED: reviewed and negative except as stated. Cardiovascular: Reports: chest pain Respiratory: Reports: cough, dyspnea Gastrointestinal: Reports: nausea. Denies: abdominal pain, vomiting, diarrhea Chest Pain PMH - Past Medical History Medical history: Reports: cirrhosis, COPD, diabetes, hyperlipidemia, hypertension, myocardial infarction, other Surgical history: Reports: appendectomy, breast surgery, cholecystectomy, hysterectomy, JUAN CARLOS/BSO Psychiatric history: Reports: no psych history - Social History Smoking Status: Current every day smoker Alcohol use: Reports: none Drug use: Reports: none Physical Exam - General Limitations: no limitations General appearance: alert, in no apparent distress - Head Head exam: atraumatic, normocephalic - Eye Eye exam: Present: normal appearance - ENT ENT exam: normal exam - Neck Neck exam: Present: normal inspection - Chest Chest inspection: Present: normal inspection, symmetric chest wall rise - Respiratory Respiratory exam: Present: normal lung sounds bilaterally - Cardiovascular Cardiovascular exam: Present: regular rate, normal rhythm, normal heart sounds - Abdominal Exam Abdominal exam: Present: soft, tenderness (Mild epigastric tenderness). Absent : distention, guarding, rigidity - Extremities Exam Extremities exam: Present: normal inspection, full ROM - Expanded Upper Extremity Exam Shoulder exam: Present: normal inspection, full ROM Arm exam: Present: normal inspection, full ROM Elbow exam: Present: normal inspection, full ROM Forearm/Wrist exam: Present: normal inspection, full ROM Hand exam: Present: normal inspection, full ROM - Expanded Lower Extremity Exam Hip/Pelvis exam: Present: normal inspection, full ROM Upper leg exam: Present: normal inspection, full ROM Knee exam: Present: normal inspection, full ROM Lower leg exam: Present: normal inspection, full ROM Ankle exam: Present: normal inspection, full ROM Foot/toe exam: Present: normal inspection, full ROM - Skin Skin exam: Present: warm, dry Course Course Narrative: Patient seen and examined. Vital signs reviewed. Pain is improved since her nitroglycerin. She received aspirin in route. Plan for EKG, chest x-ray, labs including troponin. Admission for chest pain workup. Vital Signs Temperature 97.8 F 10/23/17 20:33 Pulse Rate 61 10/23/17 20:33 Respiratory Rate 16 10/23/17 20:33 Blood Pressure 97/57 10/23/17 20:33 O2 Sat by Pulse Oximetry 98 10/23/17 20:33 Temperature 97.8 F 10/23/17 20:33 Pulse Rate 58 10/23/17 21:26 Respiratory Rate 20 10/23/17 21:26 Blood Pressure 92/49 10/23/17 21:26 O2 Sat by Pulse Oximetry 96 10/23/17 21:26 Oxygen Delivery Oxygen Delivery Room Air Chest Pain - MDM Narrative Medical decision making narrative: 62-year-old female presenting with chest pain. Reports similar symptoms to prior presentation which resulted in a left heart catheterization for unstable angina with a stent placed. EKG here is without ischemic changes. Chest x-ray unremarkable. Labs reviewed with initial troponin negative. Pain has nearly resolved with one sublingual nitroglycerin. Patient admitted to the hospitalist service for further workup. - Lab Data Lab results reviewed: Yes I reviewed the patient's lab results. Result diagrams: 10/23/17 20:55 10/23/17 20:55 Lab Results 10/23/17 10/23/17 10/23/17 Range/Units 20:55 20:55 20:55 WBC 15.1 H (4.3-11.1) K/mcL RBC 4.85 (3.82-4.97) M/mcL Hgb 14.7 (11.5-15.4) g/dL Hct 41.2 (35.3-44.9) % MCV 84.9 (83.0-100.0) fL MCH 30.3 (28.0-33.3) pg MCHC 35.7 H (31.6-35.5) g/dL RDW 13.4 (11.5-14.5) % Plt Count 273 (140-400) K/mcL MPV 10.2 (9.4-12.4) fL Immature Gran % 0.5 (0-4) % Seg Neutrophils % 63.2 % Lymphocytes % 29.1 % Monocytes % 5.6 % Eosinophils % 1.1 % Basophils % 0.5 % Neutrophils # 9.5 H (1.6-8.9) K/mcL Lymphocytes # 4.4 (0.6-4.6) K/mcL Monocytes # 0.9 (0.0-1.3) K/mcL Eosinophils # 0.2 (0.0-0.6) K/mcL Basophils # 0.1 (0.0-0.2) K/mcL PT 13.2 H (9.4-12.1) Seconds INR 1.2 APTT 28.8 (26.0-36.0) Seconds Sodium 130 L (136-145) mEq/L Potassium 4.0 (3.5-5.1) mEq/L Chloride 101 (98-107) mEq/L Carbon Dioxide 21 L (23-29) mEq/L BUN 24 H (8-23) mg/dL Creatinine 0.68 (0.60-1.20) mg/dL Est GFR ( Amer) > 60 (> 60) Est GFR (Non-Af Amer) > 60 (> 60) BUN/Creatinine Ratio 35 H (6-26) Glucose 217 H (70-105) mg/dL Calculated Osmolality 281 (280-300) Calcium 8.7 (8.6-10.3) mg/dL Troponin I < 0.03 (< 0.04) ng/mL - Radiology Data Radiology results reviewed: Yes I reviewed the patient's radiology results. Chest X-Ray 10/23/17 20:40 IMPRESSION: No acute cardiopulmonary process. D/ / Von Tabares / Von Tabares Interpreting Provider: Von Taabres - EKG Data EKG attestation: Yes I reviewed and interpreted this EKG. EKG results narrative: EKG demonstrates sinus rhythm with a rate of 60 beats or minute. Normal axis. Normal intervals. Normal R-wave progression. No gross ST elevations or depressions. No acute ischemic findings. Repeat EKG demonstrates sinus pericardial with a rate of 58 beats or minute. Normal axis. Normal intervals. Normal R-wave progression. No gross ST elevations or depressions. No acute ischemic findings. No acute changes from previous EKG. Heart Score - Score History: Moderately Suspicious EKG: Normal Age: 45-65 Risk Factors: Equal/Greater than 3 risk factor or history of atherosclerotic disease Troponin: Less than normal limit HEART Score Total: 4 S.B.A.R. - S.B.A.R. Situation: Demographics, MOA Background: Presenting Complaint, Relevant PMH, Meds, & Allergies Assessment: Vital Signs, Course and respsone to treatment, Exam Concerns, Patient/Family Expectation, Pertinant Lab Results Recommendation: Barrier(s) to disposition, Recommendation based on pending studies, treatments, or consults S.B.A.R. Report Given to: Dr. Barone SJenelleB.A.RJenelle Repor Time: 22:49 Attestation Statement - Attestation Attestation: I, Tj Guidry, examined this patient and my medical decision-making was reviewed with the SURVEILLANCE SENSOR OFFICER/PA/Advanced Practice Nurse/Resident Physician. I agree with the documented findings, disposition and treatment plan as described except to the extent set forth below. 62-year-old female presents emergency Department with concerns of acute onset chest pain. Patient states she felt lightheaded and fatigued throughout the day. Chest pain started prior to arrival. She states that this feels similar to her previous chest pain which ended up with cardiac stent being placed. Patient states the pain radiated to both shoulders, is associated with nausea however she did not feel near syncope or palpitations. EKG did not show evidence of STEMI. Repeat EKG also did not show evidence of STEMI. Initial troponin was negative. Patient will be admitted to hospitalist for further care and evaluation of acute onset chest pain to rule out ACS.
[2017-10-23 21:27] LABS: BUN/Creatinine Ratio 35 (6-26); Blood Urea Nitrogen 24 mg/dL (8-23); Calcium 8.7 mg/dL (8.6-10.3); Carbon Dioxide 21 mEq/L (23-29); Chloride 101 mEq/L (98-107); Glucose 217 mg/dL (70-105); Osmolality,Calculated 281 (280-300); Sodium 130 mEq/L (136-145); Troponin I < 0.03 ng/mL (< 0.04); eGFR For Non-African Americans > 60 (> 60)
[2017-10-23] MEDS ORDERED: 0.9 % Sodium Chloride 500 ML IVC ONE (21:55)
[2017-10-23] MEDS ORDERED: Naloxone 0.4 MG/ML INJ IVP PRN (23:08)
[2017-10-23] MEDS ORDERED: Dextrose Gel 15 GM/37.5 ML TUBE PO PRN ×2 (23:12)
[2017-10-23] MEDS ORDERED: *HR* Dextrose 50 % in Water (Syg) 50 ML SYRINGE IVP PRN (23:12)
[2017-10-23] MEDS ORDERED: D5% in Water 1,000 ML IVC PRN (23:12)
--- NOTE | 2017-10-23 23:23 | Internal Med History&Physical ---
<Young Joseph - Last Filed: 10/23/17 23:16> Date of Encounter: 10/23/17 Time of Encounter: 23:17 Internal Medicine - H&P: HPI Chief complaint: Chest pain Admitted From: Home Plans for Post Hospital Care: Home History of present illness: Ms. Mcclure is a 62 year old female with history of coronary disease status post PCI 1 presented with chief complaint of chest pain that started at 6 PM was substernal with radiation to the left shoulder and jaw that lasted 1 hour and was described as sharp, aching pain which resolved with nitroglycerin, worsens with exertion and was relieved by rest. Patient was taking her evening medications during onset of chest pain. The patient reports this chest pain is similar to her previous which resulted in PCI mentioned above. He also reports being lightheaded since 12 PM. She reports nausea, shortness of breath. She denies headache, fever, chills blurry vision, palpitations, diaphoresis, syncope , abdominal pain. Patient was just diagnosed with shingles located in the left frontal aspect of head and was started on prednisone which she completed yesterday and acyclovir. Past Med Surg Social Fam HX - Past Medical History Medical history: cirrhosis, COPD, diabetes, hyperlipidemia, hypertension, myocardial infarction, other Additional medical history: latent TB, chest pain, melena, abnormal stress test , urinary incontinence Psychiatric history: no psych history - Past Surgical History Surgical History: appendectomy, breast surgery (Removal bilateral breast lesions which were benign), cholecystectomy, hysterectomy, JUAN CARLOS/BSO Additional surgical history: cardiac cath, colonoscopy - Social History Smoking Status: Current every day smoker Packs per day: Half a pack Smokeless Tobacco Status: No Alcohol use: none Drug use: none Occupational status: disabled (reports 2nd to [employer] but unclear if she has this offical diagnosis ) - Family History Mother Family Member Ethnicity: Non- Living Status: Still Living Hx Family Cardiac Disorders: Yes (HTN, Strokes x2) Father Family Member Ethnicity: Non- Living Status: Hx Family Cardiac Disorders: Yes (DE) Hx Family Endocrine Disorder: Yes (DM) Hx Family Neurologic Disorders: Yes Brother Family Member Ethnicity: Non- Living Status: Hx Family Cardiac Disorders: Yes (DE) Sister Family Member Ethnicity: Non- Living Status: Hx Family Endocrine Disorder: Yes (DM) Internal Medicine - H&P: Meds Tiotropium [Spiriva] 18 mcg IH DAILY 30 Days capsule 03/17/16 [Rx] Metformin HCl [Glucophage] 1,000 mg PO BID 03/28/16 [History] Aspirin 81 mg PO DAILY 05/02/16 [History] Metoprolol [Lopressor] 25 mg PO BID 05/02/16 [History] Rosuvastatin Calcium [Crestor] 40 mg PO HS 05/02/16 [History] Insulin ASPART [Novolog Flexpen] 6 - 14 unit SQ TID PRN 05/27/16 [History] Insulin Glargine [Lantus] 23 unit SQ HS 05/27/16 [History] Albuterol Sulfate [Ventolin Hfa] 2 puff IH Q6H PRN 07/18/16 [History] Lisinopril 2.5 mg PO DAILY 07/18/16 [History] Clopidogrel [Plavix] 75 mg PO DAILY #30 tablet 07/20/16 [Rx] Pantoprazole Sodium [Protonix] 40 mg PO DAILY 08/06/16 [History] Gabapentin [Gralise] 300 mg PO QDPC #7 tab.er.24h 10/18/17 [Rx] PredniSONE [Deltasone] 40 mg PO QDPC #10 tablet 10/18/17 [Rx] Isosorbide MONOnitrate [Isosorbide Mononitrate ER] 120 mg PO DAILY 10/23/17 [ History] 3 Allergy/AdvReac Type Severity Reaction Status Date / Time No Known Allergies Allergy Verified 10/23/17 20:35 All Systems PM: A 10-system review of systems was performed and is negative for pertinent findings except as documented above in the HPI. Review of systems: Constitutional: Denies fever, chills HEENT: Denies headache, vision changes, neck pain, sore throat, rhinorrhea Heart: First chest pain, denies palpitations Lungs: Poor shortness of breath, denies cough, sputum production Abdomen: Reports left upper quadrant abdominal pain, loose stools, nausea. Denies diarrhea, vomiting Back: Denies back pain Kidney: Denies dysuria, hematuria Skin: Denies rash, lesions. Denies jaundice Extremities: Denies swelling, pain Neuro: Reports chronic right lower extremity numbness, tingling. Denies syncope - Constitutional Vitals: Temp Pulse Resp BP Pulse Ox 97.8 F 58 14 107/62 96 10/23/17 20:33 10/23/17 21:26 10/23/17 23:15 10/23/17 23:15 10/23/17 21:26 Exam: General: without distress HEENT: Head atraumatic, normocephalic, EOMI, PERRL, neck nontender to palpation , absent lymphadenopathy, Moist Mucous Membranes, Heart: Regular rate and rhythm with no murmur Lungs: Clear to auscultation bilaterally Abdomen: Soft nontender, nondistended positive bowel sounds Skin: warm and dry, absent rash Extremities: Absent pedal edema, Neuro: Cranial nerves II through XII intact, UE and LE sensation equal bilaterally, UE and LEstrength 5/5, alert oriented 3, Vascular: Pedal and radial pulses 2 out of 4 Internal Med - H&P Results - Labs CBC & Chem 7: 10/23/17 20:55 10/23/17 20:55 - Assessment and plan (1) Chest pain Current Visit: Yes Status: Acute Assessment and plan: 61-year-old female presented chief complaint chest pain. EKG showed sinus rhythm with out any ST T wave changes except for 1mm J-point elevation in leads 2 that was present in the previous EKG 1 month ago. Troponin negative 1 Essentially within normal limits Patient has typical chest pain and has history of coronary artery disease with PCI x 1 in July 20 to RCA. At that time cardiac catheterization also showed 30% stenosis in proximal LAD, 40% stenosis in the mid LAD, 25% stenosis in proximal circumflex, 40% stenosis mid circumflex, 40% stenosis distal circumflex Echocardiogram June 2016 showed LVEF of 65% without wall motion abnormality or valvular dysfunction. Heart Score 4 (moderate) Plan: Due to patient's risk stated above we will order repeat echocardiogram, trend troponins, and she will undergo nuclear stress test in the morning. We will hold her metoprolol. Continue aspirin, statin. Also order TSH, lipid panel. Qualifiers: Chest pain type: unspecified Qualified Code(s): R07.9 - Chest pain, unspecified (2) History of shingles Current Visit: Yes Status: Acute Assessment and plan: Patient was recently diagnosed with shingles last Friday and started on prednisone and acyclovir. Shingles located in the left scalp. Currently there are no visible lesions Prednisone likely reason her white blood cell count is elevated. Patient stricture seen adequate antiviral therapy for 7 days. (3) COPD (chronic obstructive pulmonary disease) Current Visit: Yes Status: Chronic Assessment and plan: Patient has a history of COPD She continues to smoke and was educated on smoking cessation Not an exacerbation Continue Spiriva. Qualifiers: COPD type: emphysema Emphysema type: unspecified Qualified Code(s): J43.9 - Emphysema, unspecified (4) DVT prophylaxis Current Visit: Yes Status: Acute Assessment and plan: Heparin subcutaneous (5) Hypertension Current Visit: Yes Status: Chronic Assessment and plan: Patient has a history of hypertension Controlled We will continue her lisinopril. Qualifiers: Hypertension type: essential hypertension Qualified Code(s): I10 - Essential (primary) hypertension (6) CAD (coronary artery disease) Current Visit: Yes Status: Acute Assessment and plan: Patient has a history of coronary disease as stated above She is on dual antiplatelet therapy which we will continue Qualifiers: Coronary Disease-Associated Artery/Lesion type: [place] artery [place] vs. transplanted heart: [place] heart Associated angina: angina presence unspecified Qualified Code(s): I25.10 - Atherosclerotic heart disease of [place] coronary artery without angina pectoris (7) Diabetes mellitus Current Visit: Yes Status: Chronic Assessment and plan: Patient has history of diabetes mellitus type 2 insulin-dependent Her last hemoglobin A1c was 6.9 We will put patient on every 6 hours by mouth see glucose as she is nothing by mouth for stress test tomorrow She will also be on moderate sliding scale every 6 hours. She can be transitioned to a diabetic, cardiac diet after her stress test. Qualifiers: Diabetes mellitus type: type 2 Diabetes mellitus penitentiary insulin use: with terminal make up operator use Diabetes mellitus complication status: with neurologic complications Diabetes mellitus complication detail: with polyneuropathy Qualified Code(s): E11.42 - Type 2 diabetes mellitus with diabetic polyneuropathy; Z79.4 - custodial (current) use of insulin - Time Spent With Patient Total time spent is greater than 50% in coordination of care (as documented) at patient's floor/unit and/or counseling patient: <Stephanie Harris - Last Filed: 10/23/17 23:55> Date of Encounter: 10/23/17 Internal Medicine - H&P: HPI History of present illness: Ms. Mcclure is a 62 year old female All Systems PM: A 10-system review of systems was performed and is negative for pertinent findings except as documented above in the HPI. - Constitutional Vitals: Temp Pulse Resp BP Pulse Ox 97.9 F 57 16 100/59 93 10/23/17 23:44 10/23/17 23:44 10/23/17 23:44 10/23/17 23:44 10/23/17 23:44 Internal Med - H&P Results - Labs CBC & Chem 7: 10/23/17 20:55 10/23/17 20:55 - Assessment and plan (1) Chest pain Current Visit: Yes Status: Acute Qualifiers: Chest pain type: unspecified Qualified Code(s): R07.9 - Chest pain, unspecified (2) COPD (chronic obstructive pulmonary disease) Current Visit: Yes Status: Chronic Qualifiers: COPD type: emphysema Emphysema type: unspecified Qualified Code(s): J43.9 - Emphysema, unspecified (3) DVT prophylaxis Current Visit: Yes Status: Acute (4) Hypertension Current Visit: Yes Status: Chronic Qualifiers: Hypertension type: essential hypertension Qualified Code(s): I10 - Essential (primary) hypertension (5) CAD (coronary artery disease) Current Visit: Yes Status: Acute Qualifiers: Coronary Disease-Associated Artery/Lesion type: [place] artery [place] vs. transplanted heart: [place] heart Associated angina: angina presence unspecified Qualified Code(s): I25.10 - Atherosclerotic heart disease of [place] coronary artery without angina pectoris (6) History of shingles Current Visit: Yes Status: Acute (7) Diabetes mellitus Current Visit: Yes Status: Chronic Qualifiers: Diabetes mellitus type: type 2 Diabetes mellitus terminal make up operator insulin use: with terminal make up operator use Diabetes mellitus complication status: with neurologic complications Diabetes mellitus complication detail: with polyneuropathy Qualified Code(s): E11.42 - Type 2 diabetes mellitus with diabetic polyneuropathy; Z79.4 - custodial (current) use of insulin - Time Spent With Patient Total time spent is greater than 50% in coordination of care (as documented) at patient's floor/unit and/or counseling patient: - Attending Attestation Tram Mcclure is a 62 year old woman with coronary artery disease with 1 stent placed in June 2016, diabetes, hypertension and hyperlipidemia who presents to the emergency room today complaining of chest pain that started approximately 3 hours prior to her arrival. She localizes it as substernal in location with radiation towards her arms associated with nausea and dyspnea. She took 1 nitroglycerin pill prior to the arrival of EMS with improvement in her symptoms and was administered loading dose of aspirin by EMS. She denied any other associated complaints. She is an active smoker. On review of old records it is seen that in June 2016 she presented with atypical chest pain symptoms that were mainly occurring at rest, reporting increased dyspnea on exertion and fatigue. Troponins were negative x 2. She had negative stress tests in 2009, 2012, and 04/2016. She underwent LHC on 07/19/17-- patient underwent PTCA/drug-eluting stent to proximal to mid RCA 90% stenosis but had otherwise non-obstructive CAD with proximal LAD 30%, mid LAD 40%, proximal circumflex 25%, mid circumflex 40%, distal circumflex 40%, and distal RCA 30%. Echo showed EF preserved 65%, normal diastolic function, no significant valvular dysfunction, no pulmonary hypertension, no segmental wall motion abnormalities. Rx aspirin, plavix, statin, beta vick, TONNY inhibitor, and long-acting nitrate. On my assessment she currently feels tired and that her pain has subsided. She does state that the pain extended from her epigastrium and LUQ upwards to her chest. Vitals within normal limits. Physical exam remarkable for HR of 59, no gallop rhythm, no JVD. Dry skin and mucous membranes. Non-tender chest and abdomen palpation. Has a portable small monitor placed on her left chest for episodes of dizziness. EKG reviewed showing 1mm diffuse J point elevation with concave upward elevated in D2 and D3 which is evidenced on repeat 30 minutes later. Labs remarkable for negative troponin but elevated WBC. No clinical signs of infection at this time; seen to have been on prednisone for shingles which may be the cause. Will admit to observation to rule out ACS. Monitor on telemetry and trend troponins. Continue dual anti-platelet therapy and statins. Will benefit from stress testing. Monitor BP and WBC count. Low sodium likely hypovolemic in origin based on her clinical exam. Will recheck in the morning response to 1L NS received in the ER. Rest of management per residents note.
[2017-10-24] MEDS: Insulin LISPRO 300 UNITS/3 ML VIAL SQ SCH ×4 (01:02→17:23)
[2017-10-24] MEDS: *HR* Heparin 5,000 UNIT/ML VIAL SQ SCH ×3 (05:29→22:09)
[2017-10-24 05:32] LABS: Hematocrit 40.7 % (35.3-44.9); Hemoglobin 14.1 g/dL (11.5-15.4); Mean Corpuscular HGB Conc 34.6 g/dL (31.6-35.5); Mean Corpuscular Hemoglobin 29.7 pg (28.0-33.3); Mean Corpuscular Volume 85.7 fL (83.0-100.0); Mean Platelet Volume 10.5 fL (9.4-12.4); Platelet Count 262 K/mcL (140-400); Red Blood Count 4.75 M/mcL (3.82-4.97); Red Cell Distribution Width 13.5 % (11.5-14.5)
[2017-10-24] MEDS ORDERED: Regadenoson 0.4 MG/5 ML SYRINGE IVP ONE (05:47)
[2017-10-24 06:00] LABS: Troponin I < 0.03 ng/mL (< 0.04)
[2017-10-24 06:04] LABS: Alanine Aminotransferase 16 Units/L (7-52); Albumin 3.3 g/dL (3.5-5.7); Albumin/Globulin Ratio 1.1 (1.1-2.2); Alkaline Phosphatase 119 Units/L (34-104); Aspartate Amino Transferase 16 Units/L (13-39); BUN/Creatinine Ratio 31 (6-26); Bilirubin,Total 0.4 mg/dL (0.3-1.0); Blood Urea Nitrogen 22 mg/dL (8-23); Calcium 8.3 mg/dL (8.6-10.3); Carbon Dioxide 23 mEq/L (23-29); Chloride 105 mEq/L (98-107); Chol/HDL Ratio 6.4 (0-4.9); Cholesterol 186 mg/dL (< 200); Globulin 2.9 g/dL (2.4-3.5); Glucose 249 mg/dL (70-105); HDL Cholesterol 29 mg/dL (40-59); LDL Cholesterol,Calculated 108 mg/dL (0-99); Magnesium 2.1 mg/dL (1.6-2.6); Osmolality,Calculated 290 (280-300); Sodium 134 mEq/L (136-145); Total Protein 6.2 g/dL (6.4-8.9); Triglycerides 245 mg/dL (< 150); eGFR For Non-African Americans > 60 (> 60)
[2017-10-24 06:14] LABS: Thyroid Stimulating Hormone 1.525 mcIU/mL (0.340-5.600)
[2017-10-24] MEDS: Tiotropium 18 MCG inhalation IH SCH (07:59)
[2017-10-24] MEDS: Aspirin 81 MG TAB.CHEW PO SCH (10:51)
[2017-10-24] MEDS: Gabapentin 300 MG CAPSULE PO SCH (10:53)
[2017-10-24] MEDS ORDERED: 0.9 % Sodium Chloride 1,000 ML IVC SCH (16:30)
[2017-10-24] MEDS ORDERED: Albuterol 2.5 MG/3 ML NEBULIZER IH SCH (18:00)
--- NOTE | 2017-10-24 18:41 | Internal Med Progress Note ---
Hospitalist Progress Note - Encounter Date of Encounter: 10/24/17 Time of Encounter: 16:00 - Subjective Interval History: patient seen and examined at bedside Denies any pain or discomfort. - Exam Vitals: Temp Pulse Resp BP Pulse Ox 98.1 F 80 16 119/65 92 10/24/17 15:55 10/24/17 18:06 10/24/17 15:55 10/24/17 18:06 10/24/17 15:55 Exam: General: without distress HEENT: Head atraumatic, normocephalic, EOMI, PERRL, neck nontender to palpation , absent lymphadenopathy, Moist Mucous Membranes, Heart: Regular rate and rhythm with no murmur Lungs: Clear to auscultation bilaterally Abdomen: Soft nontender, nondistended positive bowel sounds Skin: warm and dry, absent rash Extremities: Absent pedal edema, Neuro: Cranial nerves II through XII intact, UE and LE sensation equal bilaterally, UE and LEstrength 5/5, alert oriented 3, Vascular: Pedal and radial pulses 2 out of 4 - Assessment and Plan (1) Chest pain Current Visit: Yes Status: Acute Assessment and Plan: 61-year-old female presented chief complaint chest pain. underwent cardiac stress test which was negative for ischemia/infarct Troponin negative x3 echo LVEF 60%. Normal LV chamber size, wall thickness and function. Moderate left ventricular diastolic dysfunction. Normal right ventricular structure and function. No evidence of pulmonary hypertension. No significant valvular dysfunction. 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 oxygen as needed (3) DVT prophylaxis Current Visit: Yes Status: Acute Assessment and Plan: Heparin subcutaneous (4) Hypertension Current Visit: Yes Status: Chronic Assessment and Plan: Patient has a history of hypertension appears to be on the low side-systolic in 90 -100. A review of [facility] looks as if she has been experiencing orthostatic hypotension, palpitations and lightheadedness- occuring in august- It appears that her lisinopril was stopped - however she states she has cont to take it .- She does have a drop in BP when standing- we will give some fluid overnight and recheck in am (5) CAD (coronary artery disease) Current Visit: Yes Status: Acute Assessment and Plan: Patient has a history of coronary disease as stated above She is on dual antiplatelet therapy which we will continue we will resume BB in am cont with statin (6) History of shingles Current Visit: Yes Status: Acute Assessment and Plan: Patient was recently diagnosed with shingles last Friday and started on prednisone and acyclovir, which she completed Shingles located in the left scalp. Currently there are no visible lesions Prednisone likely reason her white blood cell count is elevated. Patient completed adequate antiviral therapy for 7 days. (7) Diabetes mellitus Current Visit: Yes Status: Chronic Assessment and Plan: Patient has history of diabetes mellitus type 2 insulin-dependent Her last hemoglobin A1c was 6.9 Accucheck AC/HS She can be transitioned to a diabetic, cardiac diet after her stress test. - Time Spent with Patient Total time spent is greater than 50% in coordination of care (as documented) at patient's floor/unit and/or counseling patient: Internal Medicine: Result - Labs CBC & Chem 7: 10/24/17 04:29 10/24/17 04:29 Labs: Short CBC 10/24/17 Range/Units 04:29 WBC 11.2 H (4.3-11.1) K/mcL Hgb 14.1 (11.5-15.4) g/dL Hct 40.7 (35.3-44.9) % Plt Count 262 (140-400) K/mcL BMP 10/24/17 04:29 Sodium 134 L Potassium 4.0 Chloride 105 Carbon Dioxide 23 BUN 22 Creatinine 0.70 Glucose 249 H Calcium 8.3 L Cardiac Enzymes 10/24/17 Range/Units 04:29 Troponin I < 0.03 (< 0.04) ng/mL Liver Function 10/24/17 Range/Units 04:29 Total Bilirubin 0.4 (0.3-1.0) mg/dL AST 16 (13-39) Units/L ALT 16 (7-52) Units/L Alkaline Phosphatase 119 H (34-104) Units/L Albumin 3.3 L (3.5-5.7) g/dL - ABG Interpretation ABG results: PT/INR, D-dimer PT 13.2 Seconds (9.4-12.1) H 10/23/17 20:55 - Impressions Impressions Echocardiogram 10/24/17 23:15 Impressions: LVEF 60%. Normal LV chamber size, wall thickness and function. Moderate left ventricular diastolic dysfunction. Normal right ventricular structure and function. No evidence of pulmonary hypertension. No significant valvular dysfunction. Left Ventricular Wall Motion: Rest Echo Findings All wall segments showed normal motion. Findings: Study Quality * Technically adequate exam. ECG Findings * Normal sinus rhythm. Left Ventricle * LVEF 60%. * Normal LV chamber size, wall thickness and function. * Moderate left ventricular diastolic dysfunction. Right Ventricle * Normal right ventricular structure and function. Left Atrium * Mildly dilated left atrium. Right Atrium * Normal right atrial size. Aortic Valve * Aortic valve not well visualized. * No aortic stenosis. * No aortic regurgitation. Mitral Valve * Normal mitral valve structure and function. * No mitral regurgitation. * No mitral stenosis. Tricuspid Valve * Normal tricuspid valve structure and function. * Trace tricuspid regurgitation. * No evidence of pulmonary hypertension. Pulmonic Valve * Normal pulmonic valve structure and function. * No pulmonic regurgitation. Aorta * Normally sized aortic root. Pericardium * The pericardium appears normal. IVC * Normal IVC dimensions and inspiratory collapse. Pulmonary Artery * Normal visualized portions of the main pulmonary artery. Consult Discharge Plan - Plan Referrals: Polo Martinez MD [Primary Care Provider] - 10/30/17 8:45 am (1) Chest pain Qualifiers: Chest pain type: unspecified Qualified Code(s): R07.9 - Chest pain, unspecified (2) COPD (chronic obstructive pulmonary disease) Qualifiers: COPD type: emphysema Emphysema type: unspecified Qualified Code(s): J43.9 - Emphysema, unspecified (4) Hypertension Qualifiers: Hypertension type: essential hypertension Qualified Code(s): I10 - Essential (primary) hypertension (5) CAD (coronary artery disease) Qualifiers: Coronary Disease-Associated Artery/Lesion type: [place] artery [place] vs. 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
[2017-10-24] MEDS ORDERED: Albuterol 2.5 MG/3 ML NEBULIZER IH PRN (18:55)
[2017-10-24] MEDS: 0.9 % Sodium Chloride 1,000 ML IVC SCH (19:37)
[2017-10-24] MEDS ORDERED: Insulin LISPRO 300 UNITS/3 ML VIAL SQ SCH (21:00)
[2017-10-25] MEDS: *HR* Heparin 5,000 UNIT/ML VIAL SQ SCH (05:54)
[2017-10-25] MEDS: Tiotropium 18 MCG inhalation IH SCH (07:37)
[2017-10-25] MEDS: Insulin LISPRO 300 UNITS/3 ML VIAL SQ SCH ×2 (07:42→13:05)
[2017-10-25] MEDS: Aspirin 81 MG TAB.CHEW PO SCH (07:43)
[2017-10-25] MEDS: Gabapentin 300 MG CAPSULE PO SCH (07:43)
[2017-10-25] MEDS: 0.9 % Sodium Chloride 1,000 ML IVC SCH (09:06)
[2017-10-25 10:13] LABS: Basophils % 0.4 %; Eosinophils # 0.2 K/mcL (0.0-0.6); Eosinophils % 1.8 %; Hematocrit 45.7 % (35.3-44.9); Immature Granulocytes % 0.3 % (0-4); Lymphocytes # 2.9 K/mcL (0.6-4.6); Lymphocytes % 29.5 %; Mean Corpuscular HGB Conc 34.8 g/dL (31.6-35.5); Mean Corpuscular Hemoglobin 29.7 pg (28.0-33.3); Mean Corpuscular Volume 85.4 fL (83.0-100.0); Mean Platelet Volume 10.2 fL (9.4-12.4); Monocytes # 0.5 K/mcL (0.0-1.3); Monocytes % 5.4 %; Neutrophils # 6.1 K/mcL (1.6-8.9); Platelet Count 225 K/mcL (140-400); Red Blood Count 5.35 M/mcL (3.82-4.97); Red Cell Distribution Width 13.6 % (11.5-14.5); Segmented Neutrophils % 62.6 %
[2017-10-25 10:15] LABS: Hemoglobin 15.9 g/dL (11.5-15.4)
[2017-10-25 10:31] LABS: BUN/Creatinine Ratio 21 (6-26); Blood Urea Nitrogen 14 mg/dL (8-23); Calcium 8.5 mg/dL (8.6-10.3); Carbon Dioxide 25 mEq/L (23-29); Chloride 103 mEq/L (98-107); Glucose 205 mg/dL (70-105); Osmolality,Calculated 284 (280-300); Potassium 3.9 mEq/L (3.5-5.1); Sodium 134 mEq/L (136-145); eGFR For Non-African Americans > 60 (> 60)
[2017-10-25 11:36] VITALS: BP 132/76
--- NOTE | 2017-10-25 12:07 | Discharge Summary ---
- NOTES TO OUTPATIENT PROVIDER Notes to Outpatient Provider: Presented with CP and lightheadiness - underwent cardiac stress which was negative for any ischemia or infarct. She had low BP and received IVF - lisinopril stopped and metoprolol decreased . Advised patient to keep BP log. monitor chem 7, CBC Orders not resulted at time of discharge: Pending orders 10/23/17 23:16 NM arlin perf SPECT multi [NM] Routine Date of Encounter: 10/25/17 Time of Encounter: 11:56 - Discharge Diagnosis (1) Chest pain Priority: Primary Status: Acute Qualifiers: Chest pain type: unspecified Qualified Code(s): R07.9 - Chest pain, unspecified (2) COPD (chronic obstructive pulmonary disease) Priority: Secondary Status: Chronic Qualifiers: COPD type: emphysema Emphysema type: unspecified Qualified Code(s): J43.9 - Emphysema, unspecified (3) Hypertension Priority: Secondary Status: Chronic Qualifiers: Hypertension type: essential hypertension Qualified Code(s): I10 - Essential (primary) hypertension (4) CAD (coronary artery disease) Priority: Secondary Status: Acute Qualifiers: Coronary Disease-Associated Artery/Lesion type: [place] artery [place] vs. transplanted heart: [place] heart Associated angina: angina presence unspecified Qualified Code(s): I25.10 - Atherosclerotic heart disease of [place] coronary artery without angina pectoris (5) History of shingles Priority: Secondary Status: Acute (6) Diabetes mellitus Priority: Secondary Status: Chronic Qualifiers: Diabetes mellitus type: type 2 Diabetes mellitus assisted insulin use: with manager long term care use Diabetes mellitus complication status: with neurologic complications Diabetes mellitus complication detail: with polyneuropathy Qualified Code(s): E11.42 - Type 2 diabetes mellitus with diabetic polyneuropathy; Z79.4 - alf (current) use of insulin Hospital course: Ms. Mcclure is a 62 year old female pmh CAD sp PCI DM HTN HLD. She was recently treated for shingles which she completed the course .She presented with CP substernal with radiation to L shoulder and jaw pain that lasted approx 1 hour describing as sharp aggravated with exertion relieved with rest. She also had some lightheadedness. EKG with no ST T wave abnormality troponin negative x3 She underwent a caediac stress which was negative for ischemia or infarct She did have a low BP and BP meds were held and she was given IVF She did improve. Upon review of [facility] had recommended that she stop lisinopril, but she has not. We will stop lisinopril and reduce metoprolol 12.5 mg po daily since patient HR low. Patient has a holter monitor which she will have evaluated by cardiology as outpatient. I advised the patient to to keep a BP LOG and follow up with PCP since this provider knows her best . she verbalizes understanding She is hemodynamically stable and ready for discharge Discharge discussed with: patient - Time Spent with Patient Total time spent providing and/or coordinating discharge services: - Discharge Medications Prescriptions: Metoprolol [Lopressor] 12.5 mg PO BID #30 tablet Home Medications: Tiotropium [Spiriva] 18 mcg IH DAILY 30 Days capsule 03/17/16 [Rx] Metformin HCl [Glucophage] 1,000 mg PO BID 03/28/16 [History] Aspirin 81 mg PO DAILY 05/02/16 [History] Rosuvastatin Calcium [Crestor] 40 mg PO HS 05/02/16 [History] Insulin ASPART [Novolog Flexpen] 6 - 14 unit SQ TID PRN 05/27/16 [History] Insulin Glargine [Lantus] 23 unit SQ HS 05/27/16 [History] Albuterol Sulfate [Ventolin Hfa] 2 puff IH Q6H PRN 07/18/16 [History] Clopidogrel [Plavix] 75 mg PO DAILY #30 tablet 07/20/16 [Rx] Pantoprazole Sodium [Protonix] 40 mg PO DAILY 08/06/16 [History] Gabapentin [Gralise] 300 mg PO QDPC #7 tab.er.24h 10/18/17 [Rx] Isosorbide MONOnitrate [Isosorbide Mononitrate ER] 120 mg PO DAILY 10/23/17 [ History] Metoprolol [Lopressor] 12.5 mg PO BID #30 tablet 10/25/17 [Rx] Allergies/Adverse Reactions: 3 Allergy/AdvReac Type Severity Reaction Status Date / Time No Known Allergies Allergy Verified 10/23/17 20:35 Date of admission: 10/23/17 22:51 Primary care physician: Polo Martinez MD Discharging clinician: Telma Kearns Anticipated date of discharge: 10/25/17 - Constitutional Vitals: Temp Pulse Resp BP Pulse Ox 98.3 F 71 16 132/76 94 10/25/17 11:31 10/25/17 11:31 10/25/17 11:31 10/25/17 11:31 10/25/17 11:31 General appearance: Present: A&O X 3 Exam: General: without distress HEENT: Head atraumatic, normocephalic, EOMI, PERRL, neck nontender to palpation , absent lymphadenopathy, Moist Mucous Membranes, Heart: Regular rate and rhythm with no murmur Lungs: Clear to auscultation bilaterally Abdomen: Soft nontender, nondistended positive bowel sounds Skin: warm and dry, absent rash Extremities: Absent pedal edema, Neuro: Cranial nerves II through XII intact, UE and LE sensation equal bilaterally, UE and LEstrength 5/5, alert oriented 3, Vascular: Pedal and radial pulses 2 out of 4 - Head Head exam: Present: atraumatic, normocephalic - Eye Eye exam: Present: PERRL, conjuntiva pink, sclera anicteric Pupils: Present: PERRL - Neck Neck exam general surgery: Present: supple, trachea midline. Absent: lymphadenopathy - Respiratory Respiratory exam: Present: CTAB. Absent: accessory muscle use, rales, rhonchi, wheezes - Cardiovascular Cardiovascular exam: Present: RRR, +S1, +S2. Absent: diastolic murmur, gallop, rubs, systolic murmur - GI/Abdominal GI/Abdominal exam: Present: normal bowel sounds, soft, no peritoneal signs. Absent: distended, tenderness - Extremities Exam Extremities exam: Present: warm, radial pulses palpable and symmetrical. Absent : calf tenderness, cyanotic, pedal edema - Neurological Exam Neurological exam: Present: CN II-XII intact, oriented X3, no focal deficits. Absent: pronater drift, facial droop, speech deficit - Skin Skin exam: Present: dry, intact - Patient Status Disposition: Home, Self-Care Condition: Good Overall status at discharge: patient is back to baseline - Discharge Instructions Instructions: Chest Pain (DC), Chronic Obstructive Pulmonary Disease (DC), Chronic Hypertension (DC) Follow Up With: Yony Hermosillo MD [Partnered Physician] - (Your appointment has been requested, our offices will call you with an appointment time and date. ) Polo Martinez MD [Primary Care Provider] - 10/30/17 8:45 am - Diet and Activity Activity: resume usual activities as tolerated Diet: advance to your usual diet
--- NOTE | 2017-10-26 16:35 | Electrocardiograph Report ---
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
--- NOTE | 2017-10-27 11:46 | Electrocardiograph Report ---
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
== END 2017-10-25 13:39 | disposition home or self-care (01) ==
LOC: EMEROOARM 20:20 → 3BNU 20:20
PROVIDERS: ADMIT Family Medicine; ATTEND Family Medicine

== ENCOUNTER 2019-03-17 14:24 | Observation (INO) ==
[2019-03-17] MEDS ORDERED: *HR* FentaNYL (PF) 100 MCG/2 ML VIAL IVP ONE (15:03)
[2019-03-17] MEDS ORDERED: Isovue-370 500 ML BOTTLE IVP ONE (15:05)
[2019-03-17 15:29] LABS: Basophils # 0.1 K/mcL (0.0-0.2); Basophils % 0.7 %; Eosinophils # 0.2 K/mcL (0.0-0.6); Eosinophils % 2.7 %; Hematocrit 35.7 % (35.3-44.9); Hemoglobin 12.7 g/dL (11.5-15.4); Immature Granulocytes % 0.5 % (0-4); Lymphocytes # 2.6 K/mcL (0.6-4.6); Lymphocytes % 30.1 %; Mean Corpuscular HGB Conc 35.6 g/dL (31.6-35.5); Mean Corpuscular Hemoglobin 30.3 pg (28.0-33.3); Mean Corpuscular Volume 85.2 fL (83.0-100.0); Mean Platelet Volume 10.4 fL (9.4-12.4); Monocytes # 0.5 K/mcL (0.0-1.3); Monocytes % 6.2 %; Neutrophils # 5.2 K/mcL (1.6-8.9); Platelet Count 225 K/mcL (140-400); Red Blood Count 4.19 M/mcL (3.82-4.97); Red Cell Distribution Width 13.7 % (11.5-14.5); Segmented Neutrophils % 59.8 %; White Blood Count 8.7 K/mcL (4.3-11.1)
[2019-03-17 15:37] LABS: BUN/Creatinine Ratio 22 (6-26); Blood Urea Nitrogen 14 mg/dL (8-23); Calcium 9.1 mg/dL (8.6-10.3); Carbon Dioxide 25 mEq/L (23-29); Chloride 99 mEq/L (98-107); Glucose 279 mg/dL (70-105); Lipase 17 Units/L (11-82); Osmolality,Calculated 287 (280-300); Potassium 4.3 mEq/L (3.5-5.1); Sodium 133 mEq/L (136-145); Troponin I < 0.03 ng/mL (< 0.04); eGFR For African Americans > 60 (> 60); eGFR For Non-African Americans > 60 (> 60)
[2019-03-17] MEDS ORDERED: 0.9 % Sodium Chloride 1,000 ML ONE (16:36)
[2019-03-17] MEDS ORDERED: 0.9 % Sodium Chloride 1,000 ML IVC ONE (16:36)
[2019-03-17] MEDS ORDERED: Acetaminophen 325 MG TABLET PO PRN (17:25)
[2019-03-17] MEDS ORDERED: *HR* Promethazine 25 MG/ML VIAL IVP PRN (17:25)
[2019-03-17] MEDS ORDERED: Ondansetron 4 MG/2 ML VIAL IVP PRN (17:25)
[2019-03-17] MEDS ORDERED: MOM Conc 10 ML UD.LIQ PO PRN (17:25)
[2019-03-17] MEDS ORDERED: Naloxone 0.4 MG/ML INJ IVP PRN (17:25)
[2019-03-17] MEDS ORDERED: Mag Hydrox/Al Hydrox/Simeth 30 ML UDC PO PRN (17:25)
[2019-03-17] MEDS ORDERED: D5% in Water 1,000 ML IVC PRN (17:33)
[2019-03-17] MEDS ORDERED: *HR* Dextrose 50 % in Water (Syg) 50 ML SYRINGE IVP PRN (17:33)
[2019-03-17] MEDS ORDERED: Dextrose Gel 15 GM/37.5 ML TUBE PO PRN ×2 (17:33)
[2019-03-17] MEDS ORDERED: Insulin LISPRO 300 UNITS/3 ML VIAL SQ SCH (21:00)
[2019-03-17] MEDS: *HR* Heparin 5,000 UNIT/ML VIAL SQ SCH (22:01)
[2019-03-17] MEDS ORDERED: Morphine Sulfate 2 MG/ML SYRINGE IVP PRN (22:32)
[2019-03-17] MEDS ORDERED: 0.9 % Sodium Chloride 1,000 ML IVC SCH (22:45)
[2019-03-18] MEDS ORDERED: 0.9 % Sodium Chloride 250 ML IVC ONE (04:05)
[2019-03-18 05:33] LABS: Basophils # 0.1 K/mcL (0.0-0.2); Basophils % 0.8 %; Eosinophils # 0.2 K/mcL (0.0-0.6); Eosinophils % 2.5 %; Hematocrit 35.7 % (35.3-44.9); Hemoglobin 12.3 g/dL (11.5-15.4); Immature Granulocytes % 0.3 % (0-4); Lymphocytes # 2.7 K/mcL (0.6-4.6); Lymphocytes % 34.1 %; Mean Corpuscular HGB Conc 34.5 g/dL (31.6-35.5); Mean Corpuscular Hemoglobin 30.1 pg (28.0-33.3); Mean Corpuscular Volume 87.3 fL (83.0-100.0); Mean Platelet Volume 10.3 fL (9.4-12.4); Monocytes # 0.5 K/mcL (0.0-1.3); Monocytes % 6.4 %; Neutrophils # 4.4 K/mcL (1.6-8.9); Platelet Count 197 K/mcL (140-400); Red Blood Count 4.09 M/mcL (3.82-4.97); Red Cell Distribution Width 13.8 % (11.5-14.5); Segmented Neutrophils % 55.9 %; White Blood Count 7.9 K/mcL (4.3-11.1)
[2019-03-18 05:51] LABS: BUN/Creatinine Ratio 22 (6-26); Blood Urea Nitrogen 15 mg/dL (8-23); Calcium 8.8 mg/dL (8.6-10.3); Carbon Dioxide 26 mEq/L (23-29); Chloride 105 mEq/L (98-107); Chol/HDL Ratio 7.6 (0-4.9); Cholesterol 183 mg/dL (< 200); Glucose 121 mg/dL (70-105); HDL Cholesterol 24 mg/dL (40-59); LDL Cholesterol,Calculated 113 mg/dL (0-99); Osmolality,Calculated 286 (280-300); Potassium 4.3 mEq/L (3.5-5.1); Sodium 137 mEq/L (136-145); Triglycerides 231 mg/dL (< 150); eGFR For African Americans > 60 (> 60); eGFR For Non-African Americans > 60 (> 60)
[2019-03-18] MEDS ORDERED: Regadenoson 0.4 MG/5 ML SYRINGE IVP ONE (06:16)
[2019-03-18] MEDS: *HR* Heparin 5,000 UNIT/ML VIAL SQ SCH (06:24)
[2019-03-18] MEDS ORDERED: Aspirin 81 MG TAB.CHEW PO SCH (09:00)
[2019-03-18] MEDS: Insulin LISPRO 300 UNITS/3 ML VIAL SQ SCH ×3 (09:32→16:03)
[2019-03-18 09:42] LABS: Estimated Average Glucose 169 mg/dl
[2019-03-18 14:31] VITALS: BP 119/68
== END 2019-03-18 18:11 | disposition home or self-care (01) ==
LOC: 2ANU 14:24 → EMEROOARM 14:24 → SUATTDRO 20:18 → 2ANU 21:17
PROVIDERS: ADMIT Internal Medicine; ATTEND Internal Medicine

== ENCOUNTER 2020-11-28 11:19 | Inpatient (IN) ==
[2020-11-28] MEDS ORDERED: 0.9 % Sodium Chloride 1,000 ML IVC ONE (11:37)
[2020-11-28] MEDS ORDERED: methylPREDNISolone 125 MG/2 ML VIAL IVP ONE (11:47)
[2020-11-28] MEDS ORDERED: Ipratropium/Albuterol Neb 3 ML IH ONE ×2 (11:47→13:21)
[2020-11-28] MEDS ORDERED: Ipratropium/Albuterol Neb 3 ML ONE (12:17)
[2020-11-28 12:22] LABS: VBG HCO3 24 mEq/L (21-27); VBG PCO2 37 mmHg (41-51); VBG PH 7.43 pH Units (7.32-7.42); VBG PO2 131 mmHg (25-50)
[2020-11-28 12:25] LABS: Hematocrit 42.4 % (35.3-44.9); Hemoglobin 14.9 g/dL (11.5-15.4); Mean Corpuscular HGB Conc 35.1 g/dL (31.6-35.5); Mean Corpuscular Hemoglobin 29.6 pg (28.0-33.3); Mean Corpuscular Volume 84.1 fL (83.0-100.0); Mean Platelet Volume 10.5 fL (9.4-12.4); Platelet Count 169 K/mcL (140-400); Red Blood Count 5.04 M/mcL (3.82-4.97); Red Cell Distribution Width 13.1 % (11.5-14.5); White Blood Count 8.5 K/mcL (4.3-11.1)
[2020-11-28 12:34] LABS: INR 1.2; Prothrombin Time 13.5 Seconds (9.4-12.1)
[2020-11-28 12:36] LABS: Activated Partial Thrombo Time 32.2 Seconds (26.0-36.0)
[2020-11-28 12:42] LABS: Bacteria,Urine Few per hpf (None-Few); Bilirubin,Urine Negative (Negative); Blood,Urine Negative (Negative); Clarity,Urine Turbid (Clear); Color,Urine Dark-Yellow (Yellow); Glucose,Urine (UA) Normal (Normal); Granular Casts,Urine Moderate per lpf (None Seen); Hyaline Casts,Urine Many per lpf (None Seen); Ketones,Urine Negative (Negative); Leukocyte Esterase,Urine Large (Negative); Mucus,Urine Few per lpf (None-Few); Nitrite,Urine Negative (Negative); Protein,Urine 70 mg/dL (Neg-Trace); RBC,Urine 0-3 per hpf (0-3); Renal Epithelial Cells,Urine Few per hpf (None-Few); Specific Gravity,Urine 1.018 (1.010-1.025); Squamous Epithelial Cell,Urine Few per hpf (None-Few); Transitional Epi Cells,Urine Few per hpf (None-Few); Urobilinogen,Urine Normal (Normal); WBC,Urine 50-100 per hpf (0-3)
[2020-11-28 12:50] LABS: Alanine Aminotransferase 25 Units/L (7-52); Albumin 3.5 g/dL (3.5-5.7); Alkaline Phosphatase 182 Units/L (34-104); Aspartate Amino Transferase 51 Units/L (13-39); BUN/Creatinine Ratio 20 (6-26); Bilirubin,Direct 0.3 mg/dL (0.0-0.2); Bilirubin,Indirect 0.5 mg/dL (0.0-1.0); Bilirubin,Total 0.8 mg/dL (0.3-1.0); Blood Urea Nitrogen 12 mg/dL (8-23); Calcium 8.4 mg/dL (8.6-10.3); Carbon Dioxide 24 mEq/L (23-29); Chloride 95 mEq/L (98-107); Globulin 3.4 g/dL (2.4-3.5); Glucose 183 mg/dL (70-105); Lipase 37 Units/L (11-82); Magnesium 1.8 mg/dL (1.6-2.6); Osmolality,Calculated 272 (280-300); Phosphorous 2.5 mg/dL (2.7-4.5); Potassium 3.6 mEq/L (3.5-5.1); Sodium 129 mEq/L (136-145); Total Protein 6.9 g/dL (6.4-8.9); eGFR For African Americans > 60 (> 60); eGFR For Non-African Americans > 60 (> 60)
[2020-11-28] MEDS ORDERED: cefTRIAXone 1,000 MG in Water for inj. (sterile) 10 ML IVP ONE (12:57)
[2020-11-28] MEDS ORDERED: Azithromycin 500 MG in 0.9 % Sodium Chloride 250 ML IVPB ONE (12:57)
[2020-11-28 13:08] LABS: Lymphocytes # 1.7 K/mcL (0.6-4.6); Monocytes # 0.3 K/mcL (0.0-1.3); Neutrophils # 6.3 K/mcL (1.6-8.9)
[2020-11-28 13:09] LABS: Platelet Estimate Normal (Normal); Reactive Lymphocytes Present (Not Present)
[2020-11-28 13:25] LABS: Influenza A PCR Negative (Negative); Influenza B PCR Negative (Negative); Resp. Syncytial Virus PCR Negative (Negative)
[2020-11-28 13:26] LABS: SARS-CoV-2 by PCR (In House) Positive (Negative)
[2020-11-28] MEDS ORDERED: Ondansetron 4 MG/2 ML VIAL IVP PRN (13:36)
[2020-11-28] MEDS ORDERED: Naloxone 0.4 MG/ML INJ IVP PRN (13:36)
[2020-11-28] MEDS ORDERED: D5% in Water 1,000 ML IVC PRN (13:41)
[2020-11-28] MEDS ORDERED: Dextrose Gel 15 GM/37.5 ML TUBE PO PRN ×2 (13:41)
[2020-11-28] MEDS ORDERED: *HR* Dextrose 50 % in Water (Syg) 50 ML SYRINGE IVP PRN (13:41)
[2020-11-28 15:42] LABS: Estimated Average Glucose 243 mg/dl; Hemoglobin A1C 10.1 %
[2020-11-28] MEDS: Ipratropium 1 PUFF INHALER IH SCH ×3 (15:49→23:28)
[2020-11-28] MEDS ORDERED: Remdesivir 200 MG in 0.9 % Sodium Chloride 100 ML IVPB ONE (16:00)
[2020-11-28] MEDS ORDERED: Ipratropium/Albuterol Neb 3 ML IH SCH (16:00)
[2020-11-28] MEDS: Insulin LISPRO 300 UNITS/3 ML VIAL SUBQ SCH ×2 (16:39→21:30)
[2020-11-28] MEDS: Budesonide/Formoterol 160/4.5 1 PUFF INH IH SCH (19:48)
[2020-11-28] MEDS ORDERED: Insulin DETEMIR 100 UNIT/ML X5UNITS SUBQ SCH (21:00)
[2020-11-29] MEDS: Ipratropium 1 PUFF INHALER IH SCH ×6 (03:31→23:41)
[2020-11-29 06:15] LABS: Basophils % 0.2 %; Hematocrit 40.1 % (35.3-44.9); Immature Granulocytes % 0.7 % (0-4); Lymphocytes # 0.7 K/mcL (0.6-4.6); Lymphocytes % 15.3 %; Mean Corpuscular HGB Conc 34.9 g/dL (31.6-35.5); Mean Corpuscular Hemoglobin 29.7 pg (28.0-33.3); Mean Corpuscular Volume 85.1 fL (83.0-100.0); Mean Platelet Volume 10.4 fL (9.4-12.4); Monocytes # 0.3 K/mcL (0.0-1.3); Monocytes % 6.2 %; Neutrophils # 3.5 K/mcL (1.6-8.9); Platelet Count 166 K/mcL (140-400); Red Blood Count 4.71 M/mcL (3.82-4.97); Segmented Neutrophils % 77.6 %; White Blood Count 4.5 K/mcL (4.3-11.1)
[2020-11-29 06:31] LABS: BUN/Creatinine Ratio 33 (6-26); Blood Urea Nitrogen 13 mg/dL (8-23); Calcium 8.1 mg/dL (8.6-10.3); Carbon Dioxide 24 mEq/L (23-29); Chloride 102 mEq/L (98-107); Glucose 250 mg/dL (70-105); Osmolality,Calculated 291 (280-300); Phosphorous 3.1 mg/dL (2.7-4.5); Potassium 3.6 mEq/L (3.5-5.1); Sodium 136 mEq/L (136-145); eGFR For African Americans > 60 (> 60); eGFR For Non-African Americans > 60 (> 60)
[2020-11-29 06:32] LABS: Albumin 3.2 g/dL (3.5-5.7); Albumin/Globulin Ratio 1.1 (1.1-2.2); Bilirubin,Direct 0.1 mg/dL (0.0-0.2); Bilirubin,Indirect 0.4 mg/dL (0.0-1.0); Bilirubin,Total 0.5 mg/dL (0.3-1.0); Total Protein 6.2 g/dL (6.4-8.9)
[2020-11-29 06:55] LABS: Platelet Estimate Normal (Normal); Reactive Lymphocytes Present (Not Present)
[2020-11-29] MEDS: Budesonide/Formoterol 160/4.5 1 PUFF INH IH SCH ×2 (07:52→20:05)
[2020-11-29] MEDS: Insulin LISPRO 300 UNITS/3 ML VIAL SUBQ SCH ×4 (09:05→20:14)
[2020-11-29] MEDS: Furosemide 20 MG/2 ML VIAL IVP SCH ×2 (09:06→20:11)
[2020-11-29] MEDS: *HR* Enoxaparin 40 MG/0.4 ML SYRINGE SQ SCH (09:13)
[2020-11-29] MEDS ORDERED: cefTRIAXone 1,000 MG in Water for inj. (sterile) 10 ML IVP SCH (13:00)
[2020-11-29] MEDS ORDERED: Azithromycin 500 MG in 0.9 % Sodium Chloride 250 ML IVPB SCH (14:00)
[2020-11-29] MEDS ORDERED: Chloraseptic Spray 177 ML BOTTLE MM PRN (17:51)
[2020-11-29] MEDS: Remdesivir 100 MG in 0.9 % Sodium Chloride 100 ML IVPB SCH (18:02)
[2020-11-29] MEDS: Insulin DETEMIR 100 UNIT/ML X5UNITS SUBQ SCH (21:09)
[2020-11-30] MEDS: Ipratropium 1 PUFF INHALER IH SCH ×5 (04:00→21:05)
[2020-11-30] MEDS: *HR* Enoxaparin 40 MG/0.4 ML SYRINGE SQ SCH (05:32)
[2020-11-30] MEDS: Budesonide/Formoterol 160/4.5 1 PUFF INH IH SCH ×2 (07:36→21:05)
[2020-11-30] MEDS: Insulin LISPRO 300 UNITS/3 ML VIAL SUBQ SCH ×4 (08:34→21:59)
[2020-11-30] MEDS: Insulin DETEMIR 100 UNIT/ML X5UNITS SUBQ SCH ×2 (08:34→21:58)
[2020-11-30] MEDS: Furosemide 20 MG/2 ML VIAL IVP SCH ×2 (08:34→21:58)
[2020-11-30 10:17] LABS: Bilirubin,Direct 0.2 mg/dL (0.0-0.2); Bilirubin,Indirect 0.5 mg/dL (0.0-1.0); Bilirubin,Total 0.7 mg/dL (0.3-1.0); Globulin 3.9 g/dL (2.4-3.5); Total Protein 7.9 g/dL (6.4-8.9)
[2020-11-30 10:18] LABS: BUN/Creatinine Ratio 40 (6-26); Blood Urea Nitrogen 21 mg/dL (8-23); Calcium 9.1 mg/dL (8.6-10.3); Carbon Dioxide 30 mEq/L (23-29); Chloride 98 mEq/L (98-107); Glucose 148 mg/dL (70-105); Osmolality,Calculated 294 (280-300); Potassium 3.9 mEq/L (3.5-5.1); Sodium 139 mEq/L (136-145); eGFR For African Americans > 60 (> 60); eGFR For Non-African Americans > 60 (> 60)
[2020-11-30] MEDS: Remdesivir 100 MG in 0.9 % Sodium Chloride 100 ML IVPB SCH (17:05)
[2020-12-01] MEDS: Ipratropium 1 PUFF INHALER IH SCH ×6 (00:13→20:40)
[2020-12-01] MEDS: *HR* Enoxaparin 40 MG/0.4 ML SYRINGE SQ SCH (04:18)
[2020-12-01] MEDS: Budesonide/Formoterol 160/4.5 1 PUFF INH IH SCH ×2 (07:55→22:06)
[2020-12-01 08:24] LABS: BUN/Creatinine Ratio 41 (6-26); Blood Urea Nitrogen 23 mg/dL (8-23); Calcium 8.8 mg/dL (8.6-10.3); Carbon Dioxide 32 mEq/L (23-29); Chloride 97 mEq/L (98-107); Glucose 84 mg/dL (70-105); Osmolality,Calculated 293 (280-300); Potassium 3.3 mEq/L (3.5-5.1); Sodium 140 mEq/L (136-145); eGFR For African Americans > 60 (> 60); eGFR For Non-African Americans > 60 (> 60)
[2020-12-01 08:30] LABS: Albumin 3.6 g/dL (3.5-5.7); Bilirubin,Direct 0.2 mg/dL (0.0-0.2); Bilirubin,Indirect 0.5 mg/dL (0.0-1.0); Bilirubin,Total 0.7 mg/dL (0.3-1.0); Globulin 3.5 g/dL (2.4-3.5); Hemoglobin 16.4 g/dL (11.5-15.4); Mean Corpuscular HGB Conc 33.5 g/dL (31.6-35.5); Mean Corpuscular Hemoglobin 28.8 pg (28.0-33.3); Mean Corpuscular Volume 86.1 fL (83.0-100.0); Mean Platelet Volume 10.8 fL (9.4-12.4); Platelet Count 266 K/mcL (140-400); Red Blood Count 5.69 M/mcL (3.82-4.97); Red Cell Distribution Width 13.3 % (11.5-14.5); Total Protein 7.1 g/dL (6.4-8.9); White Blood Count 10.1 K/mcL (4.3-11.1)
[2020-12-01] MEDS: Insulin LISPRO 300 UNITS/3 ML VIAL SUBQ SCH ×4 (09:26→20:49)
[2020-12-01] MEDS: Furosemide 20 MG/2 ML VIAL IVP SCH ×2 (09:35→20:50)
[2020-12-01] MEDS: Insulin DETEMIR 100 UNIT/ML X5UNITS SUBQ SCH ×2 (09:46→20:50)
[2020-12-01] MEDS: Remdesivir 100 MG in 0.9 % Sodium Chloride 100 ML IVPB SCH (17:20)
[2020-12-02] MEDS: Ipratropium 1 PUFF INHALER IH SCH ×7 (00:57→20:02)
[2020-12-02] MEDS: *HR* Enoxaparin 40 MG/0.4 ML SYRINGE SQ SCH (05:22)
[2020-12-02 07:33] LABS: Albumin 3.5 g/dL (3.5-5.7); Albumin/Globulin Ratio 1.1 (1.1-2.2); Bilirubin,Direct 0.2 mg/dL (0.0-0.2); Bilirubin,Indirect 0.5 mg/dL (0.0-1.0); Bilirubin,Total 0.7 mg/dL (0.3-1.0); Globulin 3.2 g/dL (2.4-3.5); Total Protein 6.7 g/dL (6.4-8.9)
[2020-12-02] MEDS: Budesonide/Formoterol 160/4.5 1 PUFF INH IH SCH ×2 (08:09→23:25)
[2020-12-02] MEDS: Insulin LISPRO 300 UNITS/3 ML VIAL SUBQ SCH ×4 (08:50→20:07)
[2020-12-02] MEDS: Insulin DETEMIR 100 UNIT/ML X5UNITS SUBQ SCH ×2 (09:43→20:08)
[2020-12-02] MEDS: Furosemide 20 MG/2 ML VIAL IVP SCH ×2 (09:44→20:07)
[2020-12-02 14:43] LABS: VBG HCO3 30 mEq/L (21-27); VBG PCO2 37 mmHg (41-51); VBG PH 7.52 pH Units (7.32-7.42); VBG PO2 168 mmHg (25-50)
[2020-12-02] MEDS: Remdesivir 100 MG in 0.9 % Sodium Chloride 100 ML IVPB SCH (17:31)
[2020-12-03 02:43] VITALS: BP 121/64; PULSE 56; TEMP 98.7
[2020-12-03] MEDS: Ipratropium 1 PUFF INHALER IH SCH ×3 (03:32→11:33)
[2020-12-03] MEDS: *HR* Enoxaparin 40 MG/0.4 ML SYRINGE SQ SCH (05:22)
[2020-12-03] MEDS: Budesonide/Formoterol 160/4.5 1 PUFF INH IH SCH (07:55)
[2020-12-03] MEDS ORDERED: Insulin DETEMIR 100 UNIT/ML X5UNITS SUBQ SCH (09:00)
[2020-12-03] MEDS: Insulin LISPRO 300 UNITS/3 ML VIAL SUBQ SCH (11:36)
[2020-12-03] MEDS: Furosemide 20 MG/2 ML VIAL IVP SCH (11:37)
[2020-12-03 14:27] VITALS: O2SAT 91
== END 2020-12-03 14:33 | disposition home or self-care (01) | DRG 177 ==
LOC: EMEROOARM 11:19 → 3BNU 11:19 → OBSVTOIN 14:05 → SUATTDRO 14:05 → 3BNU 14:28
PROVIDERS: ADMIT Student in an Organized Health Care Education/Training Program; ATTEND Internal Medicine